=== PATIENT | male | born 1960 | race Caucasian/White ===

== ENCOUNTER 2018-08-20 11:44 | Inpatient (IN) ==
[2018-08-20] MEDS ORDERED: Alteplase Drip 81 MG in Syringe/Bag 1 EACH IV.SIG ONE (11:49)
[2018-08-20] MEDS ORDERED: Alteplase Bolus 9 MG/9 ML Syringe IV.PUSH ONE (11:49)
--- NOTE | 2018-08-20 11:57 | ED ---
HPI General Chief Complaint: Neuro Symptoms/Deficit Stated Complaint: Neuro Time Seen by Provider: 08/20/18 11:49 Source: patient and EMS Mode of arrival: EMS Limitations: physical limitation History of Present Illness HPI Narrative: 50-year-old male was brought by EMS for aphasia. Patient was with a friend. Patient started having symptom of aphasia about 11:05. Patient was brought to local urgent care center. EMS was called to the center. EMS reported upon arrival to the urgent care center, patient started talking again. Patient was put on the stretcher to be transferred to the emergency room. Patient started having aphasia again. Upon arrival patient is aphasic. Patient denies any headache. Patient complained of shortness of breath. Patient denies any chest pain. Patient denies abdominal pain. Patient denies any focal weakness or numbness of the face or extremity. Patient has history of hyperlipidemia. Patient is a smoker. Patient took aspirin 325 mg p.o. this morning. Patient denies history of TIA or CVA. Patient denies any history of recent head injury. Onset (ago): minute(s) Last Observed Normal: 11:05 Timing confirmed by: other (Patient's friend) Location: Reports speech History of same: No Severity: severe Quality: Reports intermittent Relieving factors: none Exacerbating factors: none Context: Reports sudden onset On Anticoagulants: No Associated symptoms: Reports denies other symptoms Treatments Prior to Arrival: Reports Aspirin Related Data Home Medications Medication Instructions Recorded Confirmed aspirin 325 mg PO DAILY 08/20/18 08/20/18 pregabalin [Lyrica] 50 mg PO TID 08/20/18 08/20/18 Allergies Allergy/AdvReac Type Severity Reaction Status Date / Time No Allergy Information Allergy Unverified 08/20/18 11:46 Available Review of Systems ROS: all other systems reviewed are negative PMFSH History History 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 SKIN: Focused skin assessment warm/dry. HEAD: Normocephalic. EYES: No scleral icterus. No injection or drainage. Pupils 2 mm equal reactive. NECK: Supple, trachea midline. No JVD or lymphadenopathy. CARDIOVASCULAR: Regular rate and rhythm without murmurs, gallops, or rubs. RESPIRATORY: Breath sounds equal bilaterally. No accessory muscle use. GASTROINTESTINAL: Abdomen soft, non-tender, nondistended. MUSCULOSKELETAL: No cyanosis, or edema. BACK: Nontender without obvious deformity. No CVA tenderness. Neurologic exam: Patient is a phasic. No obvious drooping of the face or weakness of the arms and legs. Deep tendon reflexes +1 and equal. Negative Babinski. Course Initial Documented Vital Signs Temperature 99.4 F 08/20/18 11:45 Pulse Rate 91 H 08/20/18 11:45 Respiratory Rate 20 08/20/18 11:45 Blood Pressure 174/92 H 08/20/18 11:45 Pulse Oximetry 98 08/20/18 11:45 Last Documented Vital Signs Temperature 99.4 F 08/20/18 11:45 Pulse Rate 88 08/20/18 12:57 Respiratory Rate 18 08/20/18 12:57 Blood Pressure 156/78 H 08/20/18 12:57 Pulse Oximetry 100 08/20/18 12:57 NIH Stroke Scale NIH Stroke Scale Level of Consciousness: 0-Alert Orientation Questions: 0-Answers both correct Responds to Commands: 0-Both tasks correct Gaze Eye Movement: 0-Horizontal movement WNL Visual Guillaume: 0-No visual field defect Facial Movement: 0-Normal Motor Functions Arm LEFT: 0-No drift Motor Functions Arm RIGHT: 0-No drift Motor Functions Leg LEFT: 0-No drift Motor Functions Leg RIGHT: 0-No drift Limb Ataxia: 0-No ataxia Sensory Loss: 0-No sensory loss Best Language: 0-Normal Articulation: 0-Normal Extinction or Inattention Sensory: 0-Absent Total: 0 Medical Decision Making [facility] Narrative Medical decision making narrative: 58-year-old male with sudden onset of aphasia at 1105 today. Patient within window of benefit from TPA. Stroke alert was called. I spoke with neurologist on-call, Dr. Ramsey. CT scan of the brain shows no acute process. Patient will be given TPA. Medical Screen Exam Complete: Yes Emergency Medical Condition: Yes Differential Diagnosis Differential Diagnosis: Differential diagnosis including TIA, CVA. Lab Data Result diagrams: 08/20/18 11:40 Lab Results 08/20/18 08/20/18 08/20/18 Range/Units 11:40 11:40 11:40 WBC 11.5 H (4.0-11.0) th/mm3 RBC 5.29 (4.50-5.90) mil/mm3 Hgb 16.0 (13.0-17.0) gm/dL POC Hgb (Calc) 16.0 (13.0-17.0) g/dL Hct 45.4 (39.0-51.0) % POC Hct 47.0 (39-51.0) % MCV 85.9 (80.0-100.0) fL MCH 30.3 (27.0-34.0) pg MCHC 35.3 (32.0-36.0) % RDW 13.7 (11.6-17.2) % Plt Count 176 (150-450) th/mm3 MPV 9.1 (7.0-11.0) fL Neut % (Auto) 50.8 (16.0-70.0) % Lymph % (Auto) 30.6 (9.0-44.0) % Elbert % (Auto) 10.5 H (0.0-8.0) % Eos % (Auto) 7.0 H (0.0-4.0) % Baso % (Auto) 1.1 (0.0-2.0) % Neut # (Auto) 5.9 (1.8-7.7) th/mm3 Lymph # (Auto) 3.5 (1.0-4.8) th/mm3 Elbert # (Auto) 1.2 H (0.0-0.9) th/mm3 Eos # (Auto) 0.8 H (0.0-0.4) th/mm3 Baso # (Auto) 0.1 (0.0-0.2) th/mm3 WBC Differential . Differential Comment Auto diff final PT 10.5 (9.8-11.6) sec INR 1.0 Ratio APTT 28.2 (23.4-31.7) sec Fibrinogen 348 (227-377) mg/dL POC Sodium 141 (137-144) mmol/L POC Potassium 4.4 (3.6-5.0) mmol/L POC Chloride 103 (102-111) mmol/L POC BUN 22 H (5-21) mg/dL POC Creatinine 1.0 (0.6-1.3) mg/dL POC Glucose 119 H (68-110) mg/dL Total Creatine Kinase 341 H (39-308) U/L CK-MB (CK-2) 9.6 H (0.5-3.6) ng/mL CK-MB (CK-2) % 2.8 (0.0-4.0) % Troponin I Less than 0.02 L (0.02-0.05) ng/mL Blood Type Blood Type Recheck Antibody Screen 08/20/18 Range/Units 11:40 WBC (4.0-11.0) th/mm3 RBC (4.50-5.90) mil/mm3 Hgb (13.0-17.0) gm/dL POC Hgb (Calc) (13.0-17.0) g/dL Hct (39.0-51.0) % POC Hct (39-51.0) % MCV (80.0-100.0) fL MCH (27.0-34.0) pg MCHC (32.0-36.0) % RDW (11.6-17.2) % Plt Count (150-450) th/mm3 MPV (7.0-11.0) fL Neut % (Auto) (16.0-70.0) % Lymph % (Auto) (9.0-44.0) % Elbert % (Auto) (0.0-8.0) % Eos % (Auto) (0.0-4.0) % Baso % (Auto) (0.0-2.0) % Neut # (Auto) (1.8-7.7) th/mm3 Lymph # (Auto) (1.0-4.8) th/mm3 Elbert # (Auto) (0.0-0.9) th/mm3 Eos # (Auto) (0.0-0.4) th/mm3 Baso # (Auto) (0.0-0.2) th/mm3 WBC Differential Differential Comment PT (9.8-11.6) sec INR Ratio APTT (23.4-31.7) sec Fibrinogen (227-377) mg/dL POC Sodium (137-144) mmol/L POC Potassium (3.6-5.0) mmol/L POC Chloride (102-111) mmol/L POC BUN (5-21) mg/dL POC Creatinine (0.6-1.3) mg/dL POC Glucose (68-110) mg/dL Total Creatine Kinase (39-308) U/L CK-MB (CK-2) (0.5-3.6) ng/mL CK-MB (CK-2) % (0.0-4.0) % Troponin I (0.02-0.05) ng/mL Blood Type O Negative Blood Type Recheck Required Antibody Screen Negative Imaging Data Attestation: I personally reviewed and interpreted this imaging study as follows : Radiologist's impression: Chest X-Ray 08/20/18 11:47 CONCLUSION: 1. Left perihilar infiltrate consistent with possible pneumonia. Clinical correlation is recommended. 2. Cardiomegaly. Head CT 08/20/18 11:47 CONCLUSION: No acute findings. Report was called by [Ishan Canales at 1202] Neck CTA 08/20/18 11:47 CONCLUSION: Slight atherosclerotic plaquing at the origin of both ICA without any stenosis. Findings were discussed with Dr. Nickerson at the time of this dictation on 2018 at 12:30 7:00 PM. Discharge Plan Discharge Disposition Patient Disposition: ED Admit(ED Internal Use Only) Discharge Order Discharge Orders: ED Use Only Admit Order (Routine); Ordered 08/20/18 Ordered By: Dillon Canales Discharge Details Diagnosis: Acute cerebrovascular accident (CVA) Physicians Team ED Provider: Dillon Canales Primary Care Provider: UNKNOWN, Attending Provider: Eva Garcia Other Providers: Mahesh Ramsey ; Selena Scott Status ED Status: Admitted Patient
[2018-08-20 12:04] LABS: Baso # (Auto) 0.1 th/mm3 (0.0-0.2); Baso % (Auto) 1.1 % (0.0-2.0); Eos # (Auto) 0.8 th/mm3 (0.0-0.4); Hematocrit 45.4 % (39.0-51.0); Lymph # (Auto) 3.5 th/mm3 (1.0-4.8); Lymph % (Auto) 30.6 % (9.0-44.0); Mean Corpuscular HGB Conc 35.3 % (32.0-36.0); Mean Corpuscular Hemoglobin 30.3 pg (27.0-34.0); Mean Corpuscular Volume 85.9 fL (80.0-100.0); Mean Platelet Volume 9.1 fL (7.0-11.0); Mono # (Auto) 1.2 th/mm3 (0.0-0.9); Mono % (Auto) 10.5 % (0.0-8.0); Neut # (Auto) 5.9 th/mm3 (1.8-7.7); Neut % (Auto) 50.8 % (16.0-70.0); Platelet Count 176 th/mm3 (150-450); Red Blood Count 5.29 mil/mm3 (4.50-5.90); Red Cell Distribution Width 13.7 % (11.6-17.2); White Blood Count 11.5 th/mm3 (4.0-11.0)
--- NOTE | 2018-08-20 12:06 | CT ---
EXAM DATE: 08/20/2018 11:59 AM EST AGE/SEX: 58 years / Male INDICATIONS: Stroke alert, speech deficits. CLINICAL DATA: This is the patient's initial encounter. Patient reports that signs and symptoms have been present for 1 day and indicates a pain score of Nonresponsive. MEDICAL/SURGICAL HISTORY: Non-responsive. Non-responsive. RADIATION DOSE: 52.83 CTDI (mGy) COMPARISON: [facility] [place], CT CEREBRAL PERF W CONTRAST W 3D, 08/20/2018. . TECHNIQUE: CT of the head without contrast. Using automated exposure control and adjustment of the mA and/or kV according to patient size, radiation dose was kept as low as reasonably achievable to ob tain optimal diagnostic quality images. DICOM format image data is available electronically for revi ew and comparison. FINDINGS: There is an old left frontotemporal stroke identified. No evidence of intracranial hemorrhage. No gay dence of brain mass. Ventricles are symmetric and normal. Extracranial structures are benign and inta ct. CONCLUSION: No acute findings. Report was called by [Ishan Canales at 1202] Electronically signed by: Ebenezer Olmstead MD Board Certified Radiologist 08/20/2018 12:05 PM EST
[2018-08-20 12:14] LABS: Activated Partial Thrombo Time 28.2 sec (23.4-31.7); Prothrombin Time 10.5 sec (9.8-11.6)
--- NOTE | 2018-08-20 12:24 | CT ---
EXAM DATE: 08/20/2018 12:12 PM EST AGE/SEX: 58 years / Male INDICATIONS: Stroke alert, speech deficit. CLINICAL DATA: This is the patient's initial encounter. Patient reports that signs and symptoms have been present for 1 day and indicates a pain score of Nonresponsive. MEDICAL/SURGICAL HISTORY: Non-responsive. Non-responsive. RADIATION DOSE: 10.74 CTDI (mGy) ; Combined studies COMPARISON: No prior exams available for comparison. TECHNIQUE: Volumetric scanning was performed using a multi-row detector CT scanner during bolus infu luanne of 85 ml Visipaque 320 (iodixanol) nonionic water-soluble contrast as a cumulative dose for mul tiple exams. The data was post processed with a variety of visualization algorithms including full volume maximum intensity projection, multi-planar sliding thin slab reformation, curved planar reform ation, and surface rendering techniques. Using automated exposure control and adjustment of the mA a nd/or kV according to patient size, radiation dose was kept as low as reasonably achievable to obtain optimal diagnostic quality images. DICOM format image data is available electronically for review a nd comparison. FINDINGS: There are areas of slight irregularity involving multiple branches bilaterally including p osterior circulation most likely due to chronic hypertrophic changes, however other etiologies such a s vasculitis is not excluded. There is no evidence for aneurysm or vascular malformation. No definite vessel truncation or filling defect is seen. Conclusion: chronic atherosclerotic disease without evidence of truncation or definite filling defect s. Findings were discussed with Dr. Hobson at the time of this dictation on 08/20/2018 at 12:23 PM. Electronically signed by: Alan Call MD Board Certified Radiologist 08/20/2018 12:23 PM EST
[2018-08-20 12:27] LABS: Creatine Kinase 341 U/L (39-308)
[2018-08-20 12:39] LABS: CKMB Percent 2.8 % (0.0-4.0); Creatine Kinase MB 9.6 ng/mL (0.5-3.6)
--- NOTE | 2018-08-20 12:39 | CT ---
EXAM DATE: 08/20/2018 12:30 PM EST AGE/SEX: 58 years / Male INDICATIONS: Stroke alert, speech deficit. CLINICAL DATA: This is the patient's initial encounter. Patient reports that signs and symptoms have been present for 1 day and indicates a pain score of Nonresponsive. MEDICAL/SURGICAL HISTORY: Non-responsive. Non-responsive. RADIATION DOSE: 10.74 CTDI (mGy) ; Combined studies COMPARISON: No prior exams available for comparison. TECHNIQUE: Volumetric scanning was performed using a multirow detector CT scanner during bolus infus ion of 85 ml Visipaque 320 (iodixanol) nonionic water-soluble contrast as a cumulative dose for mult iple exams. The data was postprocessed with a variety of visualization algorithms including full-vo lume maximum intensity projection, multiplanar sliding thin-slab reformation, curved-planar reformati on, and surface-rendering techniques. Using automated exposure control and adjustment of the mA and/ or kV according to patient size, radiation dose was kept as low as reasonably achievable to obtain op timal diagnostic quality images. DICOM format image data is available electronically for review and comparison. Percent stenosis is calculated using the diameter of the stenotic region over the diameter of the nor mal distal internal carotid artery. FINDINGS: The takeoff of the major vessels from the arch appear intact. There is mild atherosclerotic plaquing at the origin of both internal carotid arteries without any stenosis. The vertebral body arteries mat ear. CONCLUSION: Slight atherosclerotic plaquing at the origin of both ICA without any stenosis. Findings were discuss ed with Dr. Nickerson at the time of this dictation on 08/28/2018 at 12:30 7:00 PM. Electronically signed by: Alan Call MD Board Certified Radiologist 08/20/2018 12:37 PM EST
--- NOTE | 2018-08-20 12:47 | XR ---
EXAM DATE: 08/20/2018 12:18 PM EST AGE/SEX: 58 years / Male INDICATIONS: Slurred speech, arm weakness,. Stroke Alert CLINICAL DATA: This is the patient's initial encounter. Patient reports that signs and symptoms have been present for 1 day and indicates a pain score of 1/10. MEDICAL/SURGICAL HISTORY: None. None. COMPARISON: No prior exams available for comparison. FINDINGS: The heart is enlarged. Left perihilar infiltrate is noted consistent with possible pneumonia. Clinica l correlation is recommended. The right lung is clear. Degenerative changes are noted throughout the thoracic spine. CONCLUSION: 1. Left perihilar infiltrate consistent with possible pneumonia. Clinical correlation is recommended . 2. Cardiomegaly. Electronically signed by: Greg Russell MD Board Certified Radiologist 08/20/2018 12:46 PM EST
[2018-08-20] MEDS ORDERED: Acetaminophen 325 MG Tablet PO PRN (13:00)
[2018-08-20] MEDS ORDERED: Bisacodyl 10 MG Supp RECTAL PRN (13:00)
[2018-08-20] MEDS ORDERED: Potassium Phosphate Inj 30 MMOL in Sodium Chlor 0.9% Inj 250 ML IV.SIG PRN (13:00)
[2018-08-20] MEDS ORDERED: Sodium Phosphate Inj 30 MMOL in Sodium Chlor 0.9% Inj 250 ML IV.SIG PRN (13:00)
[2018-08-20] MEDS ORDERED: Potassium Chlor 40 mEq Premix 40 MEQ/100 ML PIGGYBACK IV.SIG PRN ×2 (13:00)
[2018-08-20] MEDS ORDERED: Magnesium Sulfate Inj 2 GM in Sodium Chlor 0.9% Inj 96 ML IV.SIG PRN (13:00)
[2018-08-20] MEDS ORDERED: Magnesium Oxide 400 MG Tablet PO PRN (13:00)
[2018-08-20] MEDS ORDERED: Potassium Chlor 20 mEq Premix 20 MEQ/100 ML PIGGYBACK IV.SIG PRN ×2 (13:00)
[2018-08-20] MEDS ORDERED: Potassium Chloride Liq 20 MEQ/15 ML UDC PO PRN ×2 (13:00)
[2018-08-20] MEDS ORDERED: Dextrose 50% in Water 50 ML Vial IV.PUSH PRN (13:00)
[2018-08-20] MEDS ORDERED: Magnesium Sulfate Inj 4 GM in Sodium Chlor 0.9% Inj 92 ML IV.SIG PRN (13:00)
[2018-08-20] MEDS ORDERED: Potassium Phosphate 500 MG Soluble Tablet PO PRN ×2 (13:00)
[2018-08-20] MEDS ORDERED: Labetalol HCl Inj 100 MG/20 ML Vial IV.PUSH PRN (13:00)
--- NOTE | 2018-08-20 13:24 | P.HPCC ---
History of Present Illness Service: [facility] Primary Care Physician: UNKNOWN Chief Complaint: Difficulty speaking History of Present Illness: 58yM presenting to the emergency department as a stroke alert. The patient says that at 11 AM today he was talking to his friend when he began to have difficulty speaking and right arm weakness. He says, "I knew what I wanted to say in my head but I just couldn't get the words out", and says that he was able to understand what other people were saying to him, and was able to write what he meant on a piece of paper. He was initially seen in an urgent care center and subsequently sent to the ED. He says these symptoms lasted 15-20 minutes, resolved, but then again recurred in the ED. He has no symptoms at present. Denies visual disturbance, facial numbness/ facial droop, extremity weakness, or LUE/ bilateral lower extremity numbness. 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 No known history of A fib, current every day smoker. Family history significant for father with CAD/ [place]. Inpatient Certification: I certify that the inpatient services were ordered in accordance with Medicare regulations governing the order. This includes certification that hospital inpatient services are reasonable and necessary and in the case of services not specified as inpatient-only under 42 CFR 419.22(n), that they are appropriately provided as inpatient services in accordance to with the 2-midnight benchmark under 43 CFR 412.3(e) Estimated Total Length of Stay (Days): 3 Plans for Post Hospital Care: Home Review of Systems All other systems reviewed negative except as stated in HPI Constitutional: Denies fever(s) Eyes: Denies blurry vision Ears, Nose, Mouth, and Throat: Reports other Comments: No difficulty swallowing Cardiovascular: Denies chest pain Comments: No palpitations Respiratory: Denies cough Gastrointestinal: Denies abdominal pain Musculoskeletal: Denies abnormal walking Neurologic: Reports abnormal speech, Reports numbness Psychiatric: Denies confusion PMFSH - History History Provided By: Patient, Chief Learning Officer / EMT - Social History I have reviewed the patient's Social History: Yes - Tobacco History Tobacco Use In Past 30 Days: Yes Smoking Status: Current every day smoker Tobacco Type: Cigarettes - Alcohol History How Often Do You Have a Drink Containing Alcohol: 2 to 3 times a week - Immunization History Tetanus Immunization: Unsure Medications and Allergies Active Medications: Active Medications Acetaminophen (Tylenol) 650 mg PO Q6H PRN PRN Reason: PAIN 1-10 AND/OR FEVER >101F Al Hydroxide/Mg Hydroxide (Milk Of Magncharly Liq) 30 ml PO Q12H PRN PRN Reason: Mild Constipation Albuterol (Duoneb Neb (Prn)) 1 ampul NEB Q2HR NEB PRN PRN Reason: WHEEZING Aspirin (Aspirin) 325 mg PO DAILY JUVENTINO Bisacodyl (Dulcolax Supp) 10 mg RECTAL DAILY PRN PRN Reason: SEVERE CONSITIPATION Chlorhexidine Gluconate (Chlorhexidine 2% Cloth) 3 pack TOPICAL DAILY@0400 JUVENTINO Stop: 08/26/18 03:59 Chlorhexidine Gluconate (Chlorhexidine 2% Cloth) 3 pack TOPICAL DAILY@0400 PRN PRN Reason: Extra cloth needed Stop: 08/26/18 03:59 Dextrose (D50w Vial) 50 ml IV.PUSH UNSCH PRN PRN Reason: PER HYPOGLYCEMIA PROTOCOL Enalaprilat (Vasotec Inj) 1.25 mg IV.PUSH Q4H PRN PRN Reason: For SBP > 220 or DBP > 120 Glucagon (Glucagon Inj) 1 mg OTHER UNSCH PRN PRN Reason: for Hypoglycemia Protocol Magnesium Sulfate 4 gm/ Sodium (Chloride) 100 mls @ 50 mls/hr IV.SIG UNSCH PRN PRN Reason: For Magnesium 0.9 - 1.1 mg/dL Magnesium Sulfate 2 gm/ Sodium (Chloride) 100 mls @ 50 mls/hr IV.SIG UNSCH PRN PRN Reason: For Magnesium 1.2 - 1.6 mg/dL Potassium Chloride (Kcl 40 Meq Premix Inj) 40 meq in 100 mls @ 25 mls/hr IV.SIG Q2H PRN PRN Reason: For Potassium 2.8 - 3.2 mEq/L Potassium Chloride (Kcl 20 Meq Premix Inj) 20 meq in 100 mls @ 50 mls/hr IV.SIG Q2H PRN PRN Reason: For Potassium 3.3 - 3.5 mEq/L Potassium Chloride (Kcl 40 Meq Premix Inj) 40 meq in 100 mls @ 25 mls/hr IV.SIG UNSCH PRN PRN Reason: For Potassium 3.3 - 3.5 mEq/L Potassium Phosphate 30 mmol/ (Sodium Chloride) 260 mls @ 42 mls/hr IV.SIG UNSCH PRN PRN Reason: SEE LABEL COMMENTS Sodium Phosphate 30 mmol/ (Sodium Chloride) 260 mls @ 42 mls/hr IV.SIG UNSCH PRN PRN Reason: For Phosphorus < 2.5 mg/dL Potassium Chloride (Kcl 20 Meq Premix Inj) 20 meq in 100 mls @ 50 mls/hr IV.SIG Q2H PRN PRN Reason: For Potassium 2.8 - 3.2 mEq/L Insulin Aspart (Novolog Insulin Correctional Sugar Inj) 0 unit SQ ACHS JUVENTINO; Protocol Labetalol HCl (Trandate Inj) 10 mg IV.PUSH Q2H PRN PRN Reason: For SBP > 220 or DBP > 120 Lactulose (Lactulose Liq) 30 ml PO DAILY PRN PRN Reason: SEVERE CONSITIPATION Magnesium Oxide (Mag-Ox) 800 mg PO UNSCH PRN PRN Reason: For Magnesium 1.2 - 1.6 mg/dL Non-Formulary Medication (Pregabalin [Lyrica]) 50 mg PO TID JUVENTINO Ondansetron HCl (Zofran Inj) 4 mg IV.PUSH Q6H PRN PRN Reason: NAUSEA OR VOMITING Potassium Chloride (Kcl Liq) 40 meq PO UNSCH PRN PRN Reason: Potassium level 3.3-3.5 mEq/L Potassium Chloride (Kcl Liq) 40 meq PO UNSCH PRN PRN Reason: Potassium level 3.3-3.5 mEq/L Potassium Phosphate (K-Phos Original) 2,000 mg PO Q4H PRN PRN Reason: Phosphorus Less Than 2.5 mg/dL Potassium Phosphate (K-Phos Original) 2,000 mg PO UNSCH PRN PRN Reason: SEE LABEL COMMENTS Pravastatin Sodium (Pravachol) 40 mg PO HS [facility] Senna/Docusate Sodium (Annmarie-Colace) 1 tab PO BID [facility] Sennosides (Senokot) 17.2 mg PO Q12H PRN PRN Reason: Moderate Constipation Sodium Chloride (Ns Flush) 2 ml IV.FLUSH PRN PRN PRN Reason: FLUSH AFTER USING IV ACCESS Sodium Chloride (Ns Flush) 2 ml IV.FLUSH BID [facility] Allergies Allergy/AdvReac Type Severity Reaction Status Date / Time No Allergy Information Allergy Unverified 08/20/18 11:46 Available Home Medications Medication Instructions Recorded Confirmed Type aspirin 325 mg PO DAILY 08/20/18 08/20/18 History pregabalin [Lyrica] 50 mg PO TID 08/20/18 08/20/18 History Results - Labs CBC & Chem 7: 08/20/18 11:40 Labs: Short CBC 08/20/18 Range/Units 11:40 WBC 11.5 H (4.0-11.0) th/mm3 Hgb 16.0 (13.0-17.0) gm/dL Hct 45.4 (39.0-51.0) % Plt Count 176 (150-450) th/mm3 Cardiac Enzymes 08/20/18 Range/Units 11:40 Total Creatine Kinase 341 H (39-308) U/L CK-MB (CK-2) 9.6 H (0.5-3.6) ng/mL Troponin I Less than 0.02 L (0.02-0.05) ng/mL - Imaging Impressions Chest X-Ray 08/20/18 11:47 CONCLUSION: 1. Left perihilar infiltrate consistent with possible pneumonia. Clinical correlation is recommended. 2. Cardiomegaly. Head CT 08/20/18 11:47 CONCLUSION: No acute findings. Report was called by [Ishan Canales at 1202] Neck CTA 08/20/18 11:47 CONCLUSION: Slight atherosclerotic plaquing at the origin of both ICA without any stenosis. Findings were discussed with Dr. Nickerson at the time of this dictation on 2018 at 12:30 7:00 PM. Exam Vital signs: Vital Signs 08/20/18 11:45 08/20/18 11:48 08/20/18 12:12 Temperature 99.4 F Pulse Rate 91 H 81 Respiratory Rate 20 18 Blood Pressure 174/92 H 156/73 H Pulse Oximetry 98 100 100 08/20/18 12:26 08/20/18 12:28 08/20/18 12:30 Temperature Pulse Rate 78 79 Respiratory Rate 20 Blood Pressure 160/84 H Pulse Oximetry 100 99 08/20/18 12:42 08/20/18 12:57 Temperature Pulse Rate 81 88 Respiratory Rate 18 18 Blood Pressure 164/92 H 156/78 H Pulse Oximetry 100 100 Intake & Output 08/19/18 08/20/18 08/20/18 18:59 06:59 18:59 Weight 108.862 kg Narrative: GEN: Well-appearing, no acute distress HEENT: NCAT, PERRL, no facial asymmetry, tongue and uvula midline NECK: Trachea midline CARDIO: Regular rate and rhythm, no murmurs PULM: Clear to auscultation bilaterally ABD/GI: Soft, non-tender in all quadrants EXT/MSK: No peripheral edema SKIN: Warm and well-perfused, no rashes or lesions NEURO: Awake and alert, answers all questions appropriately, speech clear and fluent/ no slurred speech or aphasia, motor strength 5/5 in all extremities, no drift, sensation grossly intact to all extremities PSYCH: Appropriate affect Caprini VTE Risk Assessment Caprini VTE Risk Assessment: Moderate/High Risk (score >= 2) VTE Pharmacological Exception Reason: High risk for bleeding Caprini Risk Assessment Model: Point Value = 1 Point Value = 2 Point Value = 3 Point Value = 5 Age 41-60 Minor surgery BMI > 25 kg/m2 Swollen legs Varicose veins or History of unexplained or recurrent spontaneous Oral contraceptives or hormone replacement Sepsis (< 1 month) Serious lung disease, including pneumonia (< 1 month) Abnormal pulmonary function Acute myocardial infarction Congestive heart failure (< 1 month) History of inflammatory bowel disease Medical patient at bed rest Age 61-74 Arthroscopic surgery Major open surgery (> 45 min) Laparoscopic surgery (> 45 min) Malignancy Confined to bed (> 72 hours) Immobilizing plaster cast Central venous access Age >= 75 History of VTE Family history of VTE Factor V Leiden Prothrombin 55938H Lupus anticoagulant Anticardiolipin antibodies Elevated serum homocysteine Heparin-induced thrombocytopenia Other congenital or acquired thrombophilia Stroke (< 1 month) Elective arthroplasty Hip, pelvis, or leg fracture Acute spinal cord injury (< 1 month) Prophylaxis Regimen: Total Risk Factor Score Risk Level Prophylaxis Regimen 0-1 Low Early ambulation 2 Moderate Order ONE of the following: *Sequential Compression Device (SCD) *Heparin 5000 units SQ BID 3-4 Higher Order ONE of the following medications: *Heparin 5000 units SQ TID *Enoxaparin/Lovenox 40 mg SQ daily (WT < 150 kg, CrCl > 30 mL/min) *Enoxaparin/Lovenox 30 mg SQ daily (WT < 150 kg, CrCl > 10-29 mL/min) *Enoxaparin/Lovenox 30 mg SQ BID (WT < 150 kg, CrCl > 30 mL/min) AND/OR *Sequential Compression Device (SCD) 5 or more Highest Order ONE of the following medications: *Heparin 5000 units SQ TID (Preferred with Epidurals) *Enoxaparin/Lovenox 40 mg SQ daily (WT < 150 kg, CrCl > 30 mL/min) *Enoxaparin/Lovenox 30 mg SQ daily (WT < 150 kg, CrCl > 10-29 mL/min) *Enoxaparin/Lovenox 30 mg SQ BID (WT < 150 kg, CrCl > 30 mL/min) AND *Sequential Compression Device (SCD) Assessment and Plan - Assessment and Plan Plan: 58yM presenting with acute ischemic CVA NEURO: Acute ischemic CVA Dysarthria RUE numbness -Dysarthria and RUE numbness have resolved since arrival -Patient was given alteplase at 11:45 AM in ED -q1h neuro checks -CTH on arrival showed no acute hemorrhage, CTA head/ neck showed slight atherosclerotic disease of both ICAs but no large-vessel occlusions -Repeat CTH in 24 hrs -MRI brain now -desk monitor, check 2D echo -Check HbA1c and lipid panel with AM labs -Start ASA 24 hrs after tPA administration -Neurology consulted, Dr. Braulio MADRID: Tobacco use disorder -Patient counseled on importance of smoking cessation -Nicotine patch -Incentive spirometry F/E/N: -Cardiac diet -ICU electrolyte protocol PROPHY: -SCDs, start SQH 24 hrs after tPA administration -No need for PPI if patient is tolerating diet OVERALL: This patient is critically ill with signs and symptoms concerning for acute ischemic CVA. He was given t-PA and needs to be observed in the intensive care unit. If he remains stable overnight, he can be transferred to hospitalist service in AM. Critical care time: 34 minutes Code Status: Full
[2018-08-20] MEDS: Pregabalin 25 MG Capsule PO SCH ×2 (13:45→19:04)
[2018-08-20 14:08] LABS: Bilirubin,Urine Negative (Negative); Clarity,Urine Clear (Clear); Color,Urine Straw (Yellw/Straw); Glucose,Urine (UA) Negative (Negative); Leukocyte Esterase,Urine Negative (Negative); Nitrite,Urine Negative (Negative); Specific Gravity,Urine 1.033 (1.002-1.035)
[2018-08-20 14:11] LABS: Amphetamine Screen,Urine Neg (Neg); Barbiturate Screen,Urine Neg (Neg); Cannabinoid Screen,Urine Neg (Neg); Cocaine Screen,Urine Neg (Neg)
[2018-08-20 14:17] LABS: Opiate Screen,Urine Neg (Neg)
--- NOTE | 2018-08-20 14:19 | MR ---
EXAM DATE: 08/20/2018 2:07 PM EST AGE/SEX: 58 years / Male INDICATIONS: CVA. CLINICAL DATA: This is the patient's initial encounter. Patient reports that signs and symptoms have been present for 1 day and indicates a pain score of 2/10. MEDICAL/SURGICAL HISTORY: Hypertension. CVA. Discectomy, lumbar. Carpal tunnel. [place] [facility] [place] [facility] W 3[place]/20/[place]. . TECHNIQUE: Multiplanar, multisequence examination of the brain was performed without contrast. FINDINGS: Cerebrum: Focal encephalomalacia is noted involving the left frontal region. Prominent perivascular space is noted within the inferior aspect of the left basal ganglia. Right periventricular white adithya er signal abnormality is noted consistent with probable small vessel ischemic disease and/or old lacu rhonda infarct. There is no acute hemorrhage, acute infarct, midline shift or extra-axial fluid collecti on. White Matter: No significant signal abnormalities are seen in the white matter. Posterior Fossa: The cerebellum and brainstem are intact. The 4th ventricle is midline. The cerebel lopontine angle is unremarkable. The cerebellar tonsils are normal in position. Diffusion Imaging: No focal areas of restricted diffusion are seen. No evidence of acute infarction . Extracranial: The visualized portions of the orbits and paranasal sinuses are unremarkable. CONCLUSION: 1. No acute hemorrhage, acute infarct, midline shift or extra-axial fluid collections. 2. Focal encephalomalacia is noted involving the left frontal region. 3. Right periventricular white matter signal abnormality is noted consistent with probable small ves robe ischemic disease and/or old lacunar infarct. Electronically signed by: Greg Russell MD Board Certified Radiologist 08/20/2018 2:17 PM EST
--- NOTE | 2018-08-20 17:29 | P.CONNEU ---
History of Present Illness Service: Neurology Primary Care Provider: UNKNOWN Chief Complaint: Difficulty speaking History of Present Illness: 50-year-old male presents with speech difficulty. Occur approximately an hour before arrival to the ER. Woke up normal state of health. State he had difficulty getting his words out also had a numbness go down his right arm. No tonic-clonic activity. Treatment option discussed with the patient after CT brain scan did not show any acute hemorrhage. Patient elected for IV TPA understood side effects benefits 6% chance of ICH systemic bleeding. CT brain carotids not show any significant vaso-occlusive disease therefore no further intervention. Denies any head or neck trauma. Takes aspirin daily. Does not take anything for high blood pressure. He is visiting from [place] where he gets his health care. 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 States he had extensive testing performed. No history of seizures or jerking Review of Systems All other systems reviewed negative except as stated in HPI [facility] - History History Provided By: Patient - Medical History Medical History: Medical History (Last Reviewed 08/20/18 @ 17:00 by Eva Garcia DO) Stroke - Tobacco History Second Hand Smoke Exposure: Yes Tobacco Use In Past 30 Days: Yes Smoking Status: Current some day smoker Tobacco Type: Cigarettes - Alcohol History How Often Do You Have a Drink Containing Alcohol: 2 to 3 times a week - Substance Use History Substance History: No History of Abuse - Immunization History Tetanus Immunization: Unable to Assess Hx Influenza Vaccine This Season: No Medications and Allergies Active Medications: Active Medications Acetaminophen (Tylenol) 650 mg PO Q6H PRN PRN Reason: PAIN 1-10 AND/OR FEVER >101F Al Hydroxide/Mg Hydroxide (Milk Of Adan Price) 30 ml PO Q12H PRN PRN Reason: Mild Constipation Albuterol (Duoneb Neb (Prn)) 1 ampul NEB Q2HR NEB PRN PRN Reason: WHEEZING Aspirin (Aspirin) 325 mg PO DAILY [facility] Bisacodyl (Dulcolax Supp) 10 mg RECTAL DAILY PRN PRN Reason: SEVERE CONSITIPATION Chlorhexidine Gluconate (Chlorhexidine 2% Cloth) 3 pack TOPICAL DAILY@0400 [facility] Stop: 08/26/18 03:59 Chlorhexidine Gluconate (Chlorhexidine 2% Cloth) 3 pack TOPICAL DAILY@0400 PRN PRN Reason: Extra cloth needed Stop: 08/26/18 03:59 Dextrose (D50w Vial) 50 ml IV.PUSH UNSCH PRN PRN Reason: PER HYPOGLYCEMIA PROTOCOL Enalaprilat (Vasotec Inj) 1.25 mg IV.PUSH Q4H PRN PRN Reason: For SBP > 220 or DBP > 120 Glucagon (Glucagon Inj) 1 mg OTHER UNSCH PRN PRN Reason: for Hypoglycemia Protocol Magnesium Sulfate 4 gm/ Sodium (Chloride) 100 mls @ 50 mls/hr IV.SIG UNSCH PRN PRN Reason: For Magnesium 0.9 - 1.1 mg/dL Magnesium Sulfate 2 gm/ Sodium (Chloride) 100 mls @ 50 mls/hr IV.SIG UNSCH PRN PRN Reason: For Magnesium 1.2 - 1.6 mg/dL Potassium Chloride (Kcl 40 Meq Premix Inj) 40 meq in 100 mls @ 50 mls/hr IV.SIG Q2H PRN PRN Reason: For Potassium 2.8 - 3.2 mEq/L Potassium Chloride (Kcl 20 Meq Premix Inj) 20 meq in 100 mls @ 50 mls/hr IV.SIG Q2H PRN PRN Reason: For Potassium 3.3 - 3.5 mEq/L Potassium Chloride (Kcl 40 Meq Premix Inj) 40 meq in 100 mls @ 25 mls/hr IV.SIG UNSCH PRN PRN Reason: For Potassium 3.3 - 3.5 mEq/L Potassium Phosphate 30 mmol/ (Sodium Chloride) 260 mls @ 42 mls/hr IV.SIG UNSCH PRN PRN Reason: SEE LABEL COMMENTS Sodium Phosphate 30 mmol/ (Sodium Chloride) 260 mls @ 42 mls/hr IV.SIG UNSCH PRN PRN Reason: For Phosphorus < 2.5 mg/dL Potassium Chloride (Kcl 20 Meq Premix Inj) 20 meq in 100 mls @ 50 mls/hr IV.SIG Q2H PRN PRN Reason: For Potassium 2.8 - 3.2 mEq/L Insulin Aspart (Novolog Insulin Correctional Sugar Inj) 0 unit SQ ACHS [facility]; Protocol Labetalol HCl (Trandate Inj) 10 mg IV.PUSH Q2H PRN PRN Reason: For SBP > 220 or DBP > 120 Lactulose (Lactulose Liq) 30 ml PO DAILY PRN PRN Reason: SEVERE CONSITIPATION Magnesium Oxide (Mag-Ox) 800 mg PO UNSCH PRN PRN Reason: For Magnesium 1.2 - 1.6 mg/dL Nicotine (Habitrol 14 Mg Patch.24 Hr) 1 patch T-DERMAL DAILY [facility] Ondansetron HCl (Zofran Inj) 4 mg IV.PUSH Q6H PRN PRN Reason: NAUSEA OR VOMITING Patch Removal (Remove Old Patch) 1 each T-DERMAL HS [facility] Potassium Chloride (Kcl Liq) 40 meq PO UNSCH PRN PRN Reason: Potassium level 3.3-3.5 mEq/L Potassium Phosphate (K-Phos Original) 2,000 mg PO Q4H PRN PRN Reason: Phosphorus Less Than 2.5 mg/dL Potassium Phosphate (K-Phos Original) 2,000 mg PO UNSCH PRN PRN Reason: SEE LABEL COMMENTS Pravastatin Sodium (Pravachol) 40 mg PO HS [facility] Pregabalin (Lyrica) 50 mg PO TID [facility] Last Admin: 08/20/18 13:45 Dose: 50 mg Senna/Docusate Sodium (Annmarie-Colace) 1 tab PO BID [facility] Sennosides (Senokot) 17.2 mg PO Q12H PRN PRN Reason: Moderate Constipation Sodium Chloride (Ns Flush) 2 ml IV.FLUSH UNSCH PRN PRN Reason: FLUSH AFTER USING IV ACCESS Sodium Chloride (Ns Flush) 2 ml IV.FLUSH BID [facility] Allergies Allergy/AdvReac Type Severity Reaction Status Date / Time No Allergy Information Allergy Unverified 08/20/18 11:46 Available Home Medications Medication Instructions Recorded Confirmed Type aspirin 325 mg PO DAILY 08/20/18 08/20/18 History pregabalin [Lyrica] 50 mg PO TID 08/20/18 08/20/18 History Exam Vital signs: Vital Signs 08/20/18 11:45 08/20/18 11:48 08/20/18 12:12 Temperature 99.4 F Pulse Rate 91 H 81 Respiratory Rate 20 18 Blood Pressure 174/92 H 156/73 H Pulse Oximetry 98 100 100 08/20/18 12:26 08/20/18 12:28 08/20/18 12:30 Temperature Pulse Rate 78 79 Respiratory Rate 20 Blood Pressure 160/84 H Pulse Oximetry 100 99 08/20/18 12:42 08/20/18 12:57 08/20/18 13:27 Temperature Pulse Rate 81 88 69 Respiratory Rate 18 18 21 Blood Pressure 164/92 H 156/78 H 142/88 H Pulse Oximetry 100 100 100 08/20/18 13:42 08/20/18 13:57 08/20/18 14:00 Temperature Pulse Rate 70 72 72 Respiratory Rate 20 18 Blood Pressure 145/79 H 139/75 Pulse Oximetry 100 100 08/20/18 14:29 08/20/18 14:30 08/20/18 14:42 Temperature Pulse Rate 72 68 Respiratory Rate 16 23 Blood Pressure 161/86 H 152/88 H Pulse Oximetry 95 96 99 08/20/18 14:45 08/20/18 15:00 08/20/18 15:15 Temperature 98.6 F Pulse Rate 73 73 71 Respiratory Rate 27 H 20 20 Blood Pressure 142/78 H Pulse Oximetry 99 99 99 08/20/18 15:30 08/20/18 15:45 08/20/18 16:00 Temperature 98.5 F Pulse Rate 70 70 70 Respiratory Rate 18 18 23 Blood Pressure 135/74 146/86 H Pulse Oximetry 100 99 98 08/20/18 16:15 Temperature Pulse Rate 69 Respiratory Rate 47 H Blood Pressure Pulse Oximetry 99 Intake & Output 08/19/18 08/20/18 08/20/18 18:59 06:59 18:59 Intake Total 81 / 81 Balance 81 / 81 Weight 106.5 kg Intake: IV 81 / 81 Activase Drip 81 MG In Bag/ / 81 Syringe 1 EACH @ 81 mls/hr IV. SIG ONCE ONE Rx#:[id number] Narrative: GENERAL: in NAD, SKIN: Warm and dry. HEAD: Atraumatic. Normocephalic. EYES: Pupils equal and round. No scleral icterus. ENT: No nasal bleeding or discharge. Mucous membranes pink and moist. NECK: Trachea midline. No JVD. CARDIOVASCULAR: Regular rate and rhythm. RESPIRATORY: No accessory muscle use. GASTROINTESTINAL: Abdomen soft, non-tender, nondistended. MUSCULOSKELETAL: Extremities without clubbing, cyanosis, or edema. No obvious deformities. NEUROLOGICAL: Awake and alert. Sitting up in bed mildly dysarthric speech, minimal expressive aphasia able to repeat name, follows motor request, pleasant , slightly reduced right nasolabial fold smile, no pronator drift me neglect OU 3-2mm, eomi, VFF, Motor grossly within normal limits. Five out of 5 muscle strength in the arms and legs. Tone normal in all 4 limbs, Sensory normal in all 4 extremities to pin, msr 1-2+ sym, no clonus, planterflexor, PSYCHIATRIC: Appropriate mood and affect; insight and judgment normal. - Constitutional no acute distress - Routine HEENT Exam Head: Present: normocephalic Results - Labs CBC & Chem 7: 08/20/18 11:40 Labs: Laboratory Results - last 24 hr 08/20/18 08/20/18 08/20/18 11:40 11:40 11:40 WBC 11.5 H RBC 5.29 Hgb 16.0 POC Hgb (Calc) 16.0 Hct 45.4 POC Hct 47.0 MCV 85.9 MCH 30.3 MCHC 35.3 RDW 13.7 Plt Count 176 MPV 9.1 Neut % (Auto) 50.8 Lymph % (Auto) 30.6 [place] % (Auto) 10.5 H Eos % (Auto) 7.0 H Baso % (Auto) 1.1 Neut # (Auto) 5.9 Lymph # (Auto) 3.5 [place] # (Auto) 1.2 H Eos # (Auto) 0.8 H Baso # (Auto) 0.1 WBC Differential . Differential Comment Auto diff final PT 10.5 INR 1.0 APTT 28.2 Fibrinogen 348 POC Sodium 141 POC Potassium 4.4 POC Chloride 103 POC BUN 22 H POC Creatinine 1.0 POC Glucose 119 H Total Creatine Kinase 341 H CK-MB (CK-2) 9.6 H CK-MB (CK-2) % 2.8 Troponin I Less than 0.02 L Urine Color Urine Clarity Urine pH Ur Specific [place] Urine Protein Urine Glucose (UA) Urine Ketones Urine Occult Blood Urine Nitrate Urine Bilirubin Urine Urobilinogen Ur Leukocyte Esterase Urine RBC Urine WBC Micro UA Comment Ur Microscopic Review Urine Culture Comments Urine Opiates Screen Ur Barbiturates Screen Ur Amphetamines Screen U Benzodiazepines Scrn Urine Cocaine Screen U Cannabinoids Screen Blood Type Blood Type Recheck Antibody Screen 08/20/18 08/20/18 08/20/18 11:40 12:58 12:58 WBC RBC Hgb POC Hgb (Calc) Hct POC Hct MCV MCH MCHC RDW Plt Count MPV Neut % (Auto) Lymph % (Auto) [place] % (Auto) Eos % (Auto) Baso % (Auto) Neut # (Auto) Lymph # (Auto) [place] # (Auto) Eos # (Auto) Baso # (Auto) WBC Differential Differential Comment PT INR APTT Fibrinogen POC Sodium POC Potassium POC Chloride POC BUN POC Creatinine POC Glucose Total Creatine Kinase CK-MB (CK-2) CK-MB (CK-2) % Troponin I Urine Color Straw Urine Clarity Clear Urine pH 6.0 Ur Specific [place] 1.033 Urine Protein Negative Urine Glucose (UA) Negative Urine Ketones Negative Urine Occult Blood Small H Urine Nitrate Negative Urine Bilirubin Negative Urine Urobilinogen Less than 2 Ur Leukocyte Esterase Negative Urine RBC 3 Urine WBC Less than 1 Micro UA Comment Cath-culture not ind Ur Microscopic Review Not Reportable Urine Culture Comments Cath-cult not ind Urine Opiates Screen Neg Ur Barbiturates Screen Neg Ur Amphetamines Screen Neg U Benzodiazepines Scrn Neg Urine Cocaine Screen Neg U Cannabinoids Screen Neg Blood Type O Negative Blood Type Recheck Required Antibody Screen Negative - Imaging Impressions Chest X-Ray 08/20/18 11:47 CONCLUSION: 1. Left perihilar infiltrate consistent with possible pneumonia. Clinical correlation is recommended. 2. Cardiomegaly. Head CT 08/20/18 11:47 CONCLUSION: No acute findings. Report was called by [Ishan Canales at 1202] Neck CTA 08/20/18 11:47 CONCLUSION: Slight atherosclerotic plaquing at the origin of both ICA without any stenosis. Findings were discussed with Dr. Nickerson at the time of this dictation on 2018 at 12:30 7:00 PM. Head MRI 08/20/18 12:28 CONCLUSION: 1. No acute hemorrhage, acute infarct, midline shift or extra-axial fluid collections. 2. Focal encephalomalacia is noted involving the left frontal region. 3. Right periventricular white matter signal abnormality is noted consistent with probable small vessel ischemic disease and/or old lacunar infarct. Review/Management - Diagnosis (1) Acute ischemic left MCA stroke Code(s): I63.512 - Cerebral infarction due to unspecified occlusion or stenosis of left middle cerebral artery Status: Acute Current Visit: Yes (2) Chronic arterial ischemic stroke Code(s): I69.30 - Unspecified sequelae of cerebral infarction Status: Acute Current Visit: Yes (3) Hypertension Code(s): I10 - Essential (primary) hypertension Status: Acute Current Visit : Yes - Review/Management Plan: Left MCA lacunar stroke versus resolving TIA Status post IV TPA Speech improved after IV TPA. NIH stroke scale score 1 MRI brain scan reviewed which was done shortly after he got IV TPA did not show any acute stroke however does have evidence of a old left frontal infarct and old right hemispheric stroke. This would bring up the question of embolic phenomenon He also may have had left hemispheric seizure affecting his speech and arm we will check an EEG and that standpoint Recommendation Post IV TPA order set Blood pressure was 180/100 No blood thinners times 24 hours SCDs EEG We will get a repeat MRI for the morning Fasting lipids HbA1c 2D echo If CT brain scan at 24 hours negative for any hemorrhage we will start him on aspirin in addition to Plavix which he should continue with for 6-12 weeks and further evaluation follow-up in [place] We discussed hypercoagulable panel hematological evaluation cardiological evaluation for ABELARDO although he may need to be here for a few more days for that. He states he will get this testing performed outpatient in [place] is a flight back on Thursday. I also suggest for the patient to get an outpatient polysomnogram to exclude sleep apnea with his history of stroke, large neck circumference and hypertension Follow exam
[2018-08-20] MEDS: Insulin NovoLOG Aspart Correctional Sugar Inj SQ SCH ×2 (17:47→21:46)
[2018-08-20] MEDS: Senna/Docusate Sodium 8.6/50 MG Tablet PO SCH (21:03)
[2018-08-20] MEDS: levETIRAcetam 500 MG Tablet PO SCH (21:03)
[2018-08-21] MEDS ORDERED: Chlorhexidine Gluconate 2% 1 Pack (2 Cloths) TOPICAL SCH (04:00)
[2018-08-21] MEDS ORDERED: Chlorhexidine Gluconate 2% 1 Pack (2 Cloths) TOPICAL PRN (04:00)
[2018-08-21] MEDS: Insulin NovoLOG Aspart Correctional Sugar Inj SQ SCH ×4 (09:08→21:35)
[2018-08-21] MEDS: levETIRAcetam 500 MG Tablet PO SCH (09:50)
[2018-08-21] MEDS: Pregabalin 25 MG Capsule PO SCH ×3 (09:50→17:28)
[2018-08-21] MEDS: Senna/Docusate Sodium 8.6/50 MG Tablet PO SCH (09:50)
--- NOTE | 2018-08-21 10:01 | P.PN ---
Subjective Interval history: Follow-up left MCA CVA August 21, 2018-patient seen and examined, status post TPA, positive for dysarthria and no acute event overnight. Denies any chest pain or shortness of breath. Physical Exam Vital signs: Vital Signs 08/20/18 11:45 08/20/18 11:48 08/20/18 12:12 Temperature 99.4 F Pulse Rate 91 H 81 Respiratory Rate 20 18 Blood Pressure 174/92 H 156/73 H Pulse Oximetry 98 100 100 08/20/18 12:26 08/20/18 12:28 08/20/18 12:30 Temperature Pulse Rate 78 79 Respiratory Rate 20 Blood Pressure 160/84 H Pulse Oximetry 100 99 08/20/18 12:42 08/20/18 12:57 08/20/18 13:27 Temperature Pulse Rate 81 88 69 Respiratory Rate 18 18 21 Blood Pressure 164/92 H 156/78 H 142/88 H Pulse Oximetry 100 100 100 08/20/18 13:42 08/20/18 13:57 08/20/18 14:00 Temperature Pulse Rate 70 72 72 Respiratory Rate 20 18 Blood Pressure 145/79 H 139/75 Pulse Oximetry 100 100 08/20/18 14:29 08/20/18 14:30 08/20/18 14:42 Temperature Pulse Rate 72 68 Respiratory Rate 16 23 Blood Pressure 161/86 H 152/88 H Pulse Oximetry 95 96 99 08/20/18 14:45 08/20/18 15:00 08/20/18 15:15 Temperature 98.6 F Pulse Rate 73 73 71 Respiratory Rate 27 H 20 20 Blood Pressure 142/78 H Pulse Oximetry 99 99 99 08/20/18 15:30 08/20/18 15:45 08/20/18 16:00 Temperature 98.5 F Pulse Rate 70 70 70 Respiratory Rate 18 18 23 Blood Pressure 135/74 146/86 H Pulse Oximetry 100 99 98 08/20/18 16:15 08/20/18 16:30 08/20/18 16:45 Temperature Pulse Rate 69 66 65 Respiratory Rate 47 H 19 19 Blood Pressure 134/82 Pulse Oximetry 99 97 99 08/20/18 17:00 08/20/18 17:15 08/20/18 17:30 Temperature Pulse Rate 65 69 65 Respiratory Rate 21 20 19 Blood Pressure 138/77 144/79 H Pulse Oximetry 98 97 100 08/20/18 17:45 08/20/18 17:50 08/20/18 18:00 Temperature Pulse Rate 66 71 66 Respiratory Rate 23 20 Blood Pressure 136/79 Pulse Oximetry 99 99 08/20/18 18:15 08/20/18 18:30 08/20/18 19:00 Temperature Pulse Rate 72 70 70 Respiratory Rate 23 18 21 Blood Pressure 156/82 H 134/69 Pulse Oximetry 95 99 97 08/20/18 19:15 08/20/18 19:30 08/20/18 19:45 Temperature 98.1 F Pulse Rate 65 69 70 Respiratory Rate 19 35 H 27 H Blood Pressure 138/68 Pulse Oximetry 96 99 99 08/20/18 20:00 08/20/18 20:15 08/20/18 20:30 Temperature Pulse Rate 66 70 65 Respiratory Rate 23 34 H 22 Blood Pressure 146/76 H 143/64 H Pulse Oximetry 99 99 99 08/20/18 20:45 08/20/18 21:00 08/20/18 21:15 Temperature Pulse Rate 66 63 64 Respiratory Rate 20 24 17 Blood Pressure 166/96 H Pulse Oximetry 98 98 99 08/20/18 21:30 08/20/18 21:45 08/20/18 22:00 Temperature Pulse Rate 64 62 65 Respiratory Rate 33 H 17 19 Blood Pressure 146/85 H 153/83 H Pulse Oximetry 99 98 99 08/20/18 22:15 08/20/18 22:30 08/20/18 22:45 Temperature Pulse Rate 63 61 65 Respiratory Rate 21 20 24 Blood Pressure 140/95 H Pulse Oximetry 98 96 98 08/20/18 23:00 08/20/18 23:15 08/20/18 23:30 Temperature Pulse Rate 66 62 63 Respiratory Rate 22 17 23 Blood Pressure 132/73 147/93 H Pulse Oximetry 99 97 97 08/20/18 23:45 08/21/18 00:00 08/21/18 00:15 Temperature 98.6 F Pulse Rate 61 62 57 L Respiratory Rate 18 15 16 Blood Pressure 147/79 H Pulse Oximetry 98 99 98 08/21/18 00:30 08/21/18 00:45 08/21/18 01:00 Temperature Pulse Rate 59 L 60 65 Respiratory Rate 17 17 28 H Blood Pressure 143/85 H 144/84 H Pulse Oximetry 98 97 98 08/21/18 01:15 08/21/18 01:30 08/21/18 01:45 Temperature Pulse Rate 61 59 L 61 Respiratory Rate 17 22 20 Blood Pressure 121/69 Pulse Oximetry 97 97 97 08/21/18 02:00 08/21/18 02:15 08/21/18 02:30 Temperature Pulse Rate 69 70 64 Respiratory Rate 18 20 19 Blood Pressure 142/73 H 138/71 Pulse Oximetry 97 98 97 08/21/18 02:45 08/21/18 03:00 08/21/18 03:15 Temperature Pulse Rate 64 63 64 Respiratory Rate 23 22 24 Blood Pressure 149/79 H Pulse Oximetry 97 98 99 08/21/18 03:30 08/21/18 03:45 08/21/18 04:00 Temperature Pulse Rate 63 65 68 Respiratory Rate 25 H 32 H 14 Blood Pressure 136/76 149/91 H Pulse Oximetry 99 99 95 08/21/18 04:15 08/21/18 04:30 08/21/18 04:45 Temperature Pulse Rate 60 60 63 Respiratory Rate 15 18 8 L Blood Pressure 140/75 Pulse Oximetry 96 96 98 08/21/18 05:00 08/21/18 05:15 08/21/18 05:30 Temperature Pulse Rate 65 63 66 Respiratory Rate 18 20 21 Blood Pressure 122/76 150/92 H Pulse Oximetry 95 97 97 08/21/18 05:45 08/21/18 06:00 08/21/18 06:15 Temperature Pulse Rate 66 62 64 Respiratory Rate 28 H 20 20 Blood Pressure 152/86 H Pulse Oximetry 97 96 98 08/21/18 06:30 08/21/18 06:45 08/21/18 07:00 Temperature Pulse Rate 61 68 67 Respiratory Rate 15 31 H 18 Blood Pressure 119/60 132/81 Pulse Oximetry 96 99 97 08/21/18 07:15 08/21/18 07:29 08/21/18 07:30 Temperature Pulse Rate 63 72 Respiratory Rate 18 45 H Blood Pressure 153/85 H Pulse Oximetry 96 98 97 08/21/18 07:32 08/21/18 07:45 08/21/18 08:00 Temperature Pulse Rate 64 66 Respiratory Rate 18 24 Blood Pressure 133/70 Pulse Oximetry 96 98 96 08/21/18 08:15 08/21/18 08:30 08/21/18 08:45 Temperature Pulse Rate 69 74 72 Respiratory Rate 20 18 21 Blood Pressure 144/83 H Pulse Oximetry 95 95 96 08/21/18 09:00 08/21/18 09:20 08/21/18 09:30 Temperature Pulse Rate 69 72 Respiratory Rate 20 Blood Pressure 143/84 H 138/79 Pulse Oximetry 97 96 95 08/21/18 09:45 Temperature Pulse Rate 74 Respiratory Rate 33 H Blood Pressure Pulse Oximetry 93 L Intake & Output 08/20/18 08/21/18 08/21/18 18:59 06:59 18:59 Intake Total 561 / 561 660 / 660 Output Total 750 / 750 1375 / 1375 Balance -189 / -189 -715 / -715 Weight 106.5 kg 107.1 kg Intake: IV 81 / 81 Activase Drip 81 MG In Bag/ 81 / 81 Syringe 1 EACH @ 81 mls/hr IV. SIG ONCE ONE Rx#:[id number] Oral 480 / 480 660 / 660 Output: Urine 750 / 750 1375 / 1375 Other: # Voids 4 6 Narrative: GENERAL: NAD with dysarthria SKIN: Warm and dry. HEAD: Atraumatic. Normocephalic. EYES: Pupils equal and round. No scleral icterus. No injection or drainage. ENT: No nasal bleeding or discharge. Mucous membranes pink and moist. NECK: Trachea midline. No JVD. CARDIOVASCULAR: Regular rate and rhythm. RESPIRATORY: No accessory muscle use. Clear to auscultation. Breath sounds equal bilaterally. GASTROINTESTINAL: Abdomen soft, non-tender, nondistended. Hepatic and splenic margins not palpable. MUSCULOSKELETAL: Extremities without clubbing, cyanosis, or edema. No obvious deformities. NEUROLOGICAL: Awake and alert. No obvious cranial nerve deficits. Motor grossly within normal limits. Five out of 5 muscle strength in the arms and legs. Normal speech. PSYCHIATRIC: Appropriate mood and affect; insight and judgment normal. Results - Labs CBC & Chem 7: 08/20/18 11:40 Laboratory Results - last 24 hr 08/20/18 08/20/18 08/20/18 11:40 11:40 11:40 WBC 11.5 H RBC 5.29 Hgb 16.0 POC Hgb (Calc) 16.0 Hct 45.4 POC Hct 47.0 MCV 85.9 MCH 30.3 MCHC 35.3 RDW 13.7 Plt Count 176 MPV 9.1 Neut % (Auto) 50.8 Lymph % (Auto) 30.6 [place] % (Auto) 10.5 H Eos % (Auto) 7.0 H Baso % (Auto) 1.1 Neut # (Auto) 5.9 Lymph # (Auto) 3.5 [place] # (Auto) 1.2 H Eos # (Auto) 0.8 H Baso # (Auto) 0.1 WBC Differential . Differential Comment Auto diff final PT 10.5 INR 1.0 APTT 28.2 Fibrinogen 348 POC Sodium 141 POC Potassium 4.4 POC Chloride 103 POC BUN 22 H POC Creatinine 1.0 POC Glucose 119 H Total Creatine Kinase 341 H CK-MB (CK-2) 9.6 H CK-MB (CK-2) % 2.8 Troponin I Less than 0.02 L Urine Color Urine Clarity Urine pH Ur Specific [place] Urine Protein Urine Glucose (UA) Urine Ketones Urine Occult Blood Urine Nitrate Urine Bilirubin Urine Urobilinogen Ur Leukocyte Esterase Urine RBC Urine WBC Micro UA Comment Ur Microscopic Review Urine Culture Comments Nasal Screen MRSA (PCR) Urine Opiates Screen Ur Barbiturates Screen Ur Amphetamines Screen U Benzodiazepines Scrn Urine Cocaine Screen U Cannabinoids Screen Blood Type Blood Type Recheck Antibody Screen 08/20/18 08/20/18 08/20/18 11:40 12:58 12:58 WBC RBC Hgb POC Hgb (Calc) Hct POC Hct MCV MCH MCHC RDW Plt Count MPV Neut % (Auto) Lymph % (Auto) [place] % (Auto) Eos % (Auto) Baso % (Auto) Neut # (Auto) Lymph # (Auto) [place] # (Auto) Eos # (Auto) Baso # (Auto) WBC Differential Differential Comment PT INR APTT Fibrinogen POC Sodium POC Potassium POC Chloride POC BUN POC Creatinine POC Glucose Total Creatine Kinase CK-MB (CK-2) CK-MB (CK-2) % Troponin I Urine Color Straw Urine Clarity Clear Urine pH 6.0 Ur Specific [place] 1.033 Urine Protein Negative Urine Glucose (UA) Negative Urine Ketones Negative Urine Occult Blood Small H Urine Nitrate Negative Urine Bilirubin Negative Urine Urobilinogen Less than 2 Ur Leukocyte Esterase Negative Urine RBC 3 Urine WBC Less than 1 Micro UA Comment Cath-culture not ind Ur Microscopic Review Not Reportable Urine Culture Comments Cath-cult not ind Nasal Screen MRSA (PCR) Urine Opiates Screen Neg Ur Barbiturates Screen Neg Ur Amphetamines Screen Neg U Benzodiazepines Scrn Neg Urine Cocaine Screen Neg U Cannabinoids Screen Neg Blood Type O Negative Blood Type Recheck Required Antibody Screen Negative 08/20/18 08/20/18 08/20/18 15:30 17:27 21:12 WBC RBC Hgb POC Hgb (Calc) Hct POC Hct MCV MCH MCHC RDW Plt Count MPV Neut % (Auto) Lymph % (Auto) [place] % (Auto) Eos % (Auto) Baso % (Auto) Neut # (Auto) Lymph # (Auto) [place] # (Auto) Eos # (Auto) Baso # (Auto) WBC Differential Differential Comment PT INR APTT Fibrinogen POC Sodium POC Potassium POC Chloride POC BUN POC Creatinine POC Glucose 119 H 95 Total Creatine Kinase CK-MB (CK-2) CK-MB (CK-2) % Troponin I Urine Color Urine Clarity Urine pH Ur Specific [place] Urine Protein Urine Glucose (UA) Urine Ketones Urine Occult Blood Urine Nitrate Urine Bilirubin Urine Urobilinogen Ur Leukocyte Esterase Urine RBC Urine WBC Micro UA Comment Ur Microscopic Review Urine Culture Comments Nasal Screen MRSA (PCR) Not detected Urine Opiates Screen Ur Barbiturates Screen Ur Amphetamines Screen U Benzodiazepines Scrn Urine Cocaine Screen U Cannabinoids Screen Blood Type Blood Type Recheck Antibody Screen - Imaging Impressions Chest X-Ray 08/20/18 11:47 CONCLUSION: 1. Left perihilar infiltrate consistent with possible pneumonia. Clinical correlation is recommended. 2. Cardiomegaly. Head CT 08/20/18 11:47 CONCLUSION: No acute findings. Report was called by [Ishan Canales at 1202] Neck CTA 08/20/18 11:47 CONCLUSION: Slight atherosclerotic plaquing at the origin of both ICA without any stenosis. Findings were discussed with Dr. Nickerson at the time of this dictation on 2018 at 12:30 7:00 PM. Head MRI 08/20/18 12:28 CONCLUSION: 1. No acute hemorrhage, acute infarct, midline shift or extra-axial fluid collections. 2. Focal encephalomalacia is noted involving the left frontal region. 3. Right periventricular white matter signal abnormality is noted consistent with probable small vessel ischemic disease and/or old lacunar infarct. Assessment and Plan - Plan 58-year-old man with Left MCA lacunar CVA Continue treatment per ischemic stroke protocol status Post TPA Appreciate input from neurology. Continue Keppra 2D echo, Holter monitor, EEG pending Continue with statin Hold aspirin until repeat CT head completed, and if negative start aspirin and Plavix PT/OT/speech therapy consulted Continue permissive hypertension Hypertension Currently oral antihypertensive agents on hold, secondary to above DVT prophylaxis: Bilateral SCDs CMP, lipid profile pending Transfer to [facility]
--- NOTE | 2018-08-21 11:39 | MR ---
EXAM DATE: 08/21/2018 11:31 AM EST AGE/SEX: 58 years / Male INDICATIONS: Stroke. Dysarthria. Post TPA. CLINICAL DATA: This is the patient's initial encounter. Patient reports that signs and symptoms have been present for 2 days and indicates a pain score of 0/10. MEDICAL/SURGICAL HISTORY: Hypertension. Stroke. Carpal tunnel syndrome. Fusion, lumbar. COMPARISON: [facility] [place], MR HEAD W/O CONTRAST, 08/20/2018. [facility] [place], CT HEAD W/O CONTRAST, 08/20/2018. . TECHNIQUE: Multiplanar, multisequence examination of the brain was performed without contrast. FINDINGS: Cerebrum: There are new areas of punctate increased T2 signal identified within the superior left pa rietal lobe associated with restricted diffusion. This is best seen on axial series 8 image 18 and 17 . Wedge-shaped area of increased T2 signal without restricted diffusion identified within the left fr ontal lobe, right periventricular white matter and focal encephalomalacia involving the left basal ga nglia. The ventricles are normal in size without evidence of effacement. No mass effect or midline sh ift. Posterior Fossa: The cerebellum and brainstem are intact. The 4th ventricle is midline. The cerebel lopontine angle is unremarkable. The cerebellar tonsils are normal in position. Diffusion Imaging: New focal areas of reticular diffusion identified within the left parietal lobe. Extracranial: The visualized portions of the orbits and paranasal sinuses are unremarkable. CONCLUSION: 1. New punctate areas of restricted diffusion identified within the left parietal lobe. These are no t associated with hemorrhage. 2. Stable areas of encephalomalacia involving the left frontal lobe, right periventricular white mat ter and left basal ganglia. Electronically signed by: Maria E Martinez MD Board Certified Radiologist 08/21/2018 11:38 AM BRADLEY Thomas
--- NOTE | 2018-08-21 12:53 | CT ---
EXAM DATE: 08/21/2018 12:43 PM EST AGE/SEX: 58 years / Male INDICATIONS: Stroke. CLINICAL DATA: This is the patient's subsequent encounter. Patient reports that signs and symptoms h ave been present for 2 days and indicates a pain score of 0/10. MEDICAL/SURGICAL HISTORY: Stroke. None. RADIATION DOSE: 40.84 CTDI (mGy) COMPARISON: [facility], CT HEAD W/O CONTRAST, 08/20/2018. [facility] [place] [facility] [place] HEAD W CONTRAST W 3D, 08/20/2018. [facility], MR HEAD W/O CONTRAST, 08/21/2018. [facility], MR HEAD W/O CONTRAST, 08/20/2018. . TECHNIQUE: CT of the head without contrast. Using automated exposure control and adjustment of the mA and/or kV according to patient size, radiation dose was kept as low as reasonably achievable to ob tain optimal diagnostic quality images. DICOM format image data is available electronically for revi ew and comparison. FINDINGS: Cerebrum: There is a stable wedge-shaped area of encephalomalacia involving the left frontal lobe an d left basal ganglia. The ventricles are normal in size and symmetric. No evidence of mass effect or midline shift. No evidence of sulcal effacement. Posterior Fossa: The cerebellum and brainstem are intact. The 4th ventricle is midline. The cerebe llopontine angle is unremarkable. Extracranial: The visualized portion of the orbits is intact. Skull: The calvaria is intact. No evidence of skull fracture. CONCLUSION: 1. Stable appearance of an old left frontal temporal infarct. No acute abnormality. 2. Comparison MRI demonstrated areas of new acute restricted diffusion within the left parietal lobe . . Electronically signed by: Maria E Martinez MD Board Certified Radiologist 08/21/2018 12:52 PM BRADLEY Thomas
[2018-08-21] MEDS ORDERED: Aspirin 325 MG Tablet PO SCH ×2 (13:00)
[2018-08-21 14:21] LABS: Baso # (Auto) 0.1 th/mm3 (0.0-0.2); Baso % (Auto) 0.7 % (0.0-2.0); Eos # (Auto) 0.7 th/mm3 (0.0-0.4); Eos % (Auto) 5.4 % (0.0-4.0); Hematocrit 44.3 % (39.0-51.0); Hemoglobin 15.9 gm/dL (13.0-17.0); Lymph # (Auto) 2.5 th/mm3 (1.0-4.8); Lymph % (Auto) 19.7 % (9.0-44.0); Mean Corpuscular HGB Conc 35.8 % (32.0-36.0); Mean Corpuscular Hemoglobin 30.9 pg (27.0-34.0); Mean Corpuscular Volume 86.3 fL (80.0-100.0); Mean Platelet Volume 9.4 fL (7.0-11.0); Mono % (Auto) 8.2 % (0.0-8.0); Neut # (Auto) 8.4 th/mm3 (1.8-7.7); Platelet Count 189 th/mm3 (150-450); Red Blood Count 5.13 mil/mm3 (4.50-5.90); White Blood Count 12.7 th/mm3 (4.0-11.0)
[2018-08-21 14:28] LABS: Activated Partial Thrombo Time 28.6 sec (23.4-31.7); INR 1.1 Ratio; Prothrombin Time 11.4 sec (9.8-11.6)
[2018-08-21 14:44] LABS: Alanine Aminotransferase 38 U/L (12-78); Albumin 3.7 g/dL (3.4-5.0); Anion Gap 6 meq/L (5-15); Aspartate Aminotransferase 22 U/L (15-37); Blood Urea Nitrogen 13 mg/dL (7-18); Chloride 105 meq/L (98-107); Cholesterol 142 mg/dL (120-200); Glomerular Filtration Rate 86 mL/min (>89); Glucose,Random 145 mg/dL (74-106); Magnesium 2.1 mg/dL (1.5-2.5); Potassium 3.9 meq/L (3.5-5.1); Sodium 138 meq/L (136-145); Triglycerides 185 mg/dL (42-150)
[2018-08-21 14:47] LABS: Alkaline Phosphatase 89 U/L (45-117); Chol/HDL Ratio 3.74 Ratio; HDL Cholesterol 37.9 mg/dL (40.0-60.0); LDL Cholesterol,Calculated 67 mg/dL (0-99); Total Protein 7.6 g/dL (6.4-8.2)
--- NOTE | 2018-08-21 15:04 | ECG ---
Date Performed: 08/20/2018 Time Performed: 13:10:06 PTAGE: 58 years EKG: Sinus rhythm LEFT ATRIAL ENLARGEMENT ABNORMAL ECG INTERPRETATION BASED ON A DEFAULT AGE OF 40 YEARS NO PREVIOUS TRACING DOCTOR: Ortiz Jaeger Interpretating Date/Time 08/21/2018 15:02:50
--- NOTE | 2018-08-21 15:40 | P.PNNEU ---
Subjective Subjective Comments: no addison, no cp, no dyspnea Active Medications: Active Medications Acetaminophen (Tylenol) 650 mg PO Q6H PRN PRN Reason: PAIN 1-10 AND/OR FEVER >101F Al Hydroxide/Mg Hydroxide (Milk Of Adan Liso) 30 ml PO Q12H PRN PRN Reason: Mild Constipation Albuterol (Duoneb Neb (Prn)) 1 ampul NEB Q2HR NEB PRN PRN Reason: WHEEZING Aspirin (Aspirin) 325 mg PO DAILY JUVENTINO Bisacodyl (Dulcolax Supp) 10 mg RECTAL DAILY PRN PRN Reason: SEVERE CONSITIPATION Chlorhexidine Gluconate (Chlorhexidine 2% Cloth) 3 pack TOPICAL DAILY@0400 JUVENTINO Stop: 08/26/18 03:59 Chlorhexidine Gluconate (Chlorhexidine 2% Cloth) 3 pack TOPICAL DAILY@0400 PRN PRN Reason: Extra cloth needed Stop: 08/26/18 03:59 Dextrose (D50w Vial) 50 ml IV.PUSH UNSCH PRN PRN Reason: PER HYPOGLYCEMIA PROTOCOL Enalaprilat (Vasotec Inj) 1.25 mg IV.PUSH Q4H PRN PRN Reason: For SBP > 220 or DBP > 120 Glucagon (Glucagon Inj) 1 mg OTHER UNSCH PRN PRN Reason: for Hypoglycemia Protocol Magnesium Sulfate 4 gm/ Sodium (Chloride) 100 mls @ 50 mls/hr IV.SIG UNSCH PRN PRN Reason: For Magnesium 0.9 - 1.1 mg/dL Magnesium Sulfate 2 gm/ Sodium (Chloride) 100 mls @ 50 mls/hr IV.SIG UNSCH PRN PRN Reason: For Magnesium 1.2 - 1.6 mg/dL Potassium Chloride (Kcl 40 Meq Premix Inj) 40 meq in 100 mls @ 50 mls/hr IV.SIG Q2H PRN PRN Reason: For Potassium 2.8 - 3.2 mEq/L Potassium Chloride (Kcl 20 Meq Premix Inj) 20 meq in 100 mls @ 50 mls/hr IV.SIG Q2H PRN PRN Reason: For Potassium 3.3 - 3.5 mEq/L Potassium Chloride (Kcl 40 Meq Premix Inj) 40 meq in 100 mls @ 25 mls/hr IV.SIG UNSCH PRN PRN Reason: For Potassium 3.3 - 3.5 mEq/L Potassium Phosphate 30 mmol/ (Sodium Chloride) 260 mls @ 42 mls/hr IV.SIG UNSCH PRN PRN Reason: SEE LABEL COMMENTS Sodium Phosphate 30 mmol/ (Sodium Chloride) 260 mls @ 42 mls/hr IV.SIG UNSCH PRN PRN Reason: For Phosphorus < 2.5 mg/dL Potassium Chloride (Kcl 20 Meq Premix Inj) 20 meq in 100 mls @ 50 mls/hr IV.SIG Q2H PRN PRN Reason: For Potassium 2.8 - 3.2 mEq/L Insulin Aspart (Novolog Insulin Correctional Sugar Inj) 0 unit SQ ACHS [facility]; Protocol Last Admin: 08/21/18 12:11 Dose: Not Given Labetalol HCl (Trandate Inj) 10 mg IV.PUSH Q2H PRN PRN Reason: For SBP > 220 or DBP > 120 Lactulose (Lactulose Liq) 30 ml PO DAILY PRN PRN Reason: SEVERE CONSITIPATION Levetiracetam (Keppra) 500 mg PO BID [facility] Last Admin: 08/21/18 09:50 Dose: 500 mg Magnesium Oxide (Mag-Ox) 800 mg PO UNSCH PRN PRN Reason: For Magnesium 1.2 - 1.6 mg/dL Nicotine (Habitrol 14 Mg Patch.24 Hr) 1 patch T-DERMAL DAILY [facility] Last Admin: 08/21/18 09:50 Dose: Not Given Ondansetron HCl (Zofran Inj) 4 mg IV.PUSH Q6H PRN PRN Reason: NAUSEA OR VOMITING Patch Removal (Remove Old Patch) 1 each T-DERMAL [facility] Last Admin: 08/20/18 21:45 Dose: 1 each Potassium Chloride (Kcl Liq) 40 meq PO UNSCH PRN PRN Reason: Potassium level 3.3-3.5 mEq/L Potassium Phosphate (K-Phos Original) 2,000 mg PO Q4H PRN PRN Reason: Phosphorus Less Than 2.5 mg/dL Potassium Phosphate (K-Phos Original) 2,000 mg PO UNSCH PRN PRN Reason: SEE LABEL COMMENTS Pravastatin Sodium (Pravachol) 40 mg PO [facility] Last Admin: 08/20/18 21:03 Dose: 40 mg Pregabalin (Lyrica) 50 mg PO TID [facility] Last Admin: 08/21/18 13:07 Dose: 50 mg Sennosides (Senokot) 17.2 mg PO Q12H PRN PRN Reason: Moderate Constipation Sodium Chloride (Ns Flush) 2 ml IV.FLUSH UNSCH PRN PRN Reason: FLUSH AFTER USING IV ACCESS Sodium Chloride (Ns Flush) 2 ml IV.FLUSH BID JUVENTINO Last Admin: 08/21/18 09:50 Dose: 2 ml Allergies/Adverse Reactions: Allergies Allergy/AdvReac Type Severity Reaction Status Date / Time Penicillins Allergy Hives Verified 08/21/18 09:49 Review of Systems All other systems reviewed negative except as stated in HPI Physical Exam Vital signs: Vital Signs 08/20/18 15:45 08/20/18 16:00 08/20/18 16:15 Temperature 98.5 F Pulse Rate 70 70 69 Respiratory Rate 18 23 47 H Blood Pressure 146/86 H Pulse Oximetry 99 98 99 08/20/18 16:30 08/20/18 16:45 08/20/18 17:00 Temperature Pulse Rate 66 65 65 Respiratory Rate 19 19 21 Blood Pressure 134/82 138/77 Pulse Oximetry 97 99 98 08/20/18 17:15 08/20/18 17:30 08/20/18 17:45 Temperature Pulse Rate 69 65 66 Respiratory Rate 20 19 23 Blood Pressure 144/79 H Pulse Oximetry 97 100 99 08/20/18 17:50 08/20/18 18:00 08/20/18 18:15 Temperature Pulse Rate 71 66 72 Respiratory Rate 20 23 Blood Pressure 136/79 Pulse Oximetry 99 95 08/20/18 18:30 08/20/18 19:00 08/20/18 19:15 Temperature 98.1 F Pulse Rate 70 70 65 Respiratory Rate 18 21 19 Blood Pressure 156/82 H 134/69 Pulse Oximetry 99 97 96 08/20/18 19:30 08/20/18 19:45 08/20/18 20:00 Temperature Pulse Rate 69 70 66 Respiratory Rate 35 H 27 H 23 Blood Pressure 138/68 146/76 H Pulse Oximetry 99 99 99 08/20/18 20:15 08/20/18 20:30 08/20/18 20:45 Temperature Pulse Rate 70 65 66 Respiratory Rate 34 H 22 20 Blood Pressure 143/64 H Pulse Oximetry 99 99 98 08/20/18 21:00 08/20/18 21:15 08/20/18 21:30 Temperature Pulse Rate 63 64 64 Respiratory Rate 24 17 33 H Blood Pressure 166/96 H 146/85 H Pulse Oximetry 98 99 99 08/20/18 21:45 08/20/18 22:00 08/20/18 22:15 Temperature Pulse Rate 62 65 63 Respiratory Rate 17 19 21 Blood Pressure 153/83 H Pulse Oximetry 98 99 98 08/20/18 22:30 08/20/18 22:45 08/20/18 23:00 Temperature Pulse Rate 61 65 66 Respiratory Rate 20 24 22 Blood Pressure 140/95 H 132/73 Pulse Oximetry 96 98 99 08/20/18 23:15 08/20/18 23:30 08/20/18 23:45 Temperature Pulse Rate 62 63 61 Respiratory Rate 17 23 18 Blood Pressure 147/93 H Pulse Oximetry 97 97 98 08/21/18 00:00 08/21/18 00:15 08/21/18 00:30 Temperature 98.6 F Pulse Rate 62 57 L 59 L Respiratory Rate 15 16 17 Blood Pressure 147/79 H 143/85 H Pulse Oximetry 99 98 98 08/21/18 00:45 08/21/18 01:00 08/21/18 01:15 Temperature Pulse Rate 60 65 61 Respiratory Rate 17 28 H 17 Blood Pressure 144/84 H Pulse Oximetry 97 98 97 08/21/18 01:30 08/21/18 01:45 08/21/18 02:00 Temperature Pulse Rate 59 L 61 69 Respiratory Rate 22 20 18 Blood Pressure 121/69 142/73 H Pulse Oximetry 97 97 97 08/21/18 02:15 08/21/18 02:30 08/21/18 02:45 Temperature Pulse Rate 70 64 64 Respiratory Rate 20 19 23 Blood Pressure 138/71 Pulse Oximetry 98 97 97 08/21/18 03:00 08/21/18 03:15 08/21/18 03:30 Temperature Pulse Rate 63 64 63 Respiratory Rate 22 24 25 H Blood Pressure 149/79 H 136/76 Pulse Oximetry 98 99 99 08/21/18 03:45 08/21/18 04:00 08/21/18 04:15 Temperature Pulse Rate 65 68 60 Respiratory Rate 32 H 14 15 Blood Pressure 149/91 H Pulse Oximetry 99 95 96 08/21/18 04:30 08/21/18 04:45 08/21/18 05:00 Temperature Pulse Rate 60 63 65 Respiratory Rate 18 8 L 18 Blood Pressure 140/75 122/76 Pulse Oximetry 96 98 95 08/21/18 05:15 08/21/18 05:30 08/21/18 05:45 Temperature Pulse Rate 63 66 66 Respiratory Rate 20 21 28 H Blood Pressure 150/92 H Pulse Oximetry 97 97 97 08/21/18 06:00 08/21/18 06:15 08/21/18 06:30 Temperature Pulse Rate 62 64 61 Respiratory Rate 20 20 15 Blood Pressure 152/86 H 119/60 Pulse Oximetry 96 98 96 08/21/18 06:45 08/21/18 07:00 08/21/18 07:15 Temperature Pulse Rate 68 67 63 Respiratory Rate 31 H 18 18 Blood Pressure 132/81 Pulse Oximetry 99 97 96 08/21/18 07:29 08/21/18 07:30 08/21/18 07:32 Temperature Pulse Rate 72 Respiratory Rate 45 H Blood Pressure 153/85 H Pulse Oximetry 98 97 96 08/21/18 07:45 08/21/18 08:00 08/21/18 08:15 Temperature Pulse Rate 64 66 69 Respiratory Rate 18 24 20 Blood Pressure 133/70 Pulse Oximetry 98 96 95 08/21/18 08:30 08/21/18 08:45 08/21/18 09:00 Temperature Pulse Rate 74 72 69 Respiratory Rate 18 21 20 Blood Pressure 144/83 H Pulse Oximetry 95 96 97 08/21/18 09:20 08/21/18 09:30 08/21/18 09:45 Temperature Pulse Rate 72 74 Respiratory Rate 33 H Blood Pressure 143/84 H 138/79 Pulse Oximetry 96 95 93 L 08/21/18 10:00 08/21/18 10:15 08/21/18 10:30 Temperature Pulse Rate 76 75 75 Respiratory Rate 20 18 18 Blood Pressure 132/98 H 139/87 Pulse Oximetry 95 97 08/21/18 10:45 08/21/18 11:00 08/21/18 12:00 Temperature 98.5 F Pulse Rate 78 74 71 Respiratory Rate 16 23 16 Blood Pressure 138/84 151/86 H Pulse Oximetry 98 Intake & Output 08/20/18 08/21/18 08/21/18 18:59 06:59 18:59 Intake Total 561 / 561 660 / 660 400 / 400 Output Total 750 / 750 1375 / 1375 Balance -189 / -189 -715 / -715 400 / 400 Weight 106.5 kg 107.1 kg Intake: IV Activase Drip 81 MG In Bag/ Syringe 1 EACH @ 81 mls/hr IV. SIG ONCE ONE Rx#:[id number] Oral 480 / 480 660 / 660 400 / 400 Output: Urine 750 / 750 1375 / 1375 Other: # Voids 4 6 3 Date of Last Bowel Movement 08/21/18 # Bowel Movements 1 Narrative: GENERAL: in NAD, SKIN: Warm and dry. HEAD: Atraumatic. Normocephalic. EYES: Pupils equal and round. No scleral icterus. ENT: No nasal bleeding or discharge. Mucous membranes pink and moist. NECK: Trachea midline. No JVD. CARDIOVASCULAR: Regular rate and rhythm. RESPIRATORY: No accessory muscle use. GASTROINTESTINAL: Abdomen soft, non-tender, nondistended. MUSCULOSKELETAL: Extremities without clubbing, cyanosis, or edema. No obvious deformities. NEUROLOGICAL: Awake and alert. Sitting up in bed mildly dysarthric speech, minimal expressive aphasia able to repeat name, follows motor request, pleasant , slightly reduced right nasolabial fold smile, no pronator drift me neglect OU 3-2mm, eomi, VFF, Motor grossly within normal limits. Five out of 5 muscle strength in the arms and legs. Tone normal in all 4 limbs, Sensory normal in all 4 extremities to pin, msr 1-2+ sym, no clonus, planterflexor, PSYCHIATRIC: Appropriate mood and affect; insight and judgment normal. - Constitutional no acute distress - Routine HEENT Exam Head: Present: normocephalic Eye: Present: EOMI Objective Laboratory Results - last 24 hr 08/20/18 08/20/18 08/20/18 15:30 17:27 21:12 WBC RBC Hgb Hct MCV MCH MCHC RDW Plt Count MPV Neut % (Auto) Lymph % (Auto) Mcleod % (Auto) Eos % (Auto) Baso % (Auto) Neut # (Auto) Lymph # (Auto) Mcleod # (Auto) Eos # (Auto) Baso # (Auto) WBC Differential Differential Comment PT INR APTT Sodium Potassium Chloride Carbon Dioxide Anion Gap BUN Creatinine Estimated GFR POC Glucose 119 H 95 Random Glucose Calcium Magnesium Total Bilirubin AST ALT Alkaline Phosphatase Total Protein Albumin Triglycerides Cholesterol LDL Cholesterol, Calc HDL Cholesterol Cholesterol/HDL Ratio Nasal Screen MRSA (PCR) Not detected 08/21/18 08/21/18 08/21/18 11:57 13:56 13:56 WBC 12.7 H RBC 5.13 Hgb 15.9 Hct 44.3 MCV 86.3 MCH 30.9 MCHC 35.8 RDW 14.0 Plt Count 189 MPV 9.4 Neut % (Auto) 66.0 Lymph % (Auto) 19.7 Mcleod % (Auto) 8.2 H Eos % (Auto) 5.4 H Baso % (Auto) 0.7 Neut # (Auto) 8.4 H Lymph # (Auto) 2.5 Mcleod # (Auto) 1.0 H Eos # (Auto) 0.7 H Baso # (Auto) 0.1 WBC Differential . Differential Comment Auto diff final PT 11.4 INR 1.1 APTT 28.6 Sodium Potassium Chloride Carbon Dioxide Anion Gap BUN Creatinine Estimated GFR POC Glucose 110 Random Glucose Calcium Magnesium Total Bilirubin AST ALT Alkaline Phosphatase Total Protein Albumin Triglycerides Cholesterol LDL Cholesterol, Calc HDL Cholesterol Cholesterol/HDL Ratio Nasal Screen MRSA (PCR) 08/21/18 13:56 WBC RBC Hgb Hct MCV MCH MCHC RDW Plt Count MPV Neut % (Auto) Lymph % (Auto) Mcleod % (Auto) Eos % (Auto) Baso % (Auto) Neut # (Auto) Lymph # (Auto) Mcleod # (Auto) Eos # (Auto) Baso # (Auto) WBC Differential Differential Comment PT INR APTT Sodium 138 Potassium 3.9 Chloride 105 Carbon Dioxide 27.0 Anion Gap 6 BUN 13 Creatinine 0.91 Estimated GFR 86 L POC Glucose Random Glucose 145 H Calcium 9.0 Magnesium 2.1 Total Bilirubin 0.9 AST 22 ALT 38 Alkaline Phosphatase 89 Total Protein 7.6 Albumin 3.7 Triglycerides 185 H Cholesterol 142 LDL Cholesterol, Calc 67 HDL Cholesterol 37.9 L Cholesterol/HDL Ratio 3.74 Nasal Screen MRSA (PCR) Review/Management - Diagnosis (1) Acute ischemic left MCA stroke Code(s): I63.512 - Cerebral infarction due to unspecified occlusion or stenosis of left middle cerebral artery Status: Acute Current Visit: Yes (2) Chronic arterial ischemic stroke Code(s): I69.30 - Unspecified sequelae of cerebral infarction Status: Acute Current Visit: Yes (3) Hypertension Code(s): I10 - Essential (primary) hypertension Status: Acute Current Visit : Yes - Review/Management Plan: Left MCA lacunar stroke versus resolving TIA Status post IV TPA Speech improved after IV TPA. NIH stroke scale score 1 MRI brain scan reviewed which was done shortly after he got IV TPA did not show any acute stroke however does have evidence of a old left frontal infarct and old right hemispheric stroke. This would bring up the question of embolic phenomenon He also may have had left hemispheric seizure affecting his speech and arm we will check an EEG and that standpoint repeat mri brain 08/21/2017 does show tiny left temporal region infarcts Repeat CT brain 24-hour post TPA negative for hemorrhage Recommendation We will start aspirin Plavix. Can stop aspirin in 3 months DC planning in a.m. Follow-up 2D echo report further evaluation follow-up in [place] per patient request We discussed hypercoagulable panel hematological evaluation cardiological evaluation for ABELARDO although he may need to be here for a few more days for that. He states he will get this testing performed outpatient in [place] is a flight back on Thursday. I also suggest for the patient to get an outpatient polysomnogram to exclude sleep apnea with his history of stroke, large neck circumference and hypertension Follow exam
--- NOTE | 2018-08-21 21:32 | MG ---
cc: Mahesh Ramsey MD DATE OF STUDY: 08/21/2018 ELECTROENCEPHALOGRAM RECORD NUMBER: [id number] DESCRIPTION: An 8-9 Hz posterior alpha rhythm, 20-50 microvolts, low-amplitude beta in the frontal channels, good anterior to posterior gradient. Attenuation slowing with transition into drowsy state, followed by stage I and stage II sleep with the appearance of spindles and K complexes. Frequent arousals during sleep with good background reactivity. Single-lead EKG showing sinus rhythm. INTERPRETATION: Normal awake sleep electroencephalogram. Clinical correlation. MD BRISA White/ahsan , 08:51 PM , 08:56 PM
[2018-08-22] MEDS: Pregabalin 25 MG Capsule PO SCH (08:00)
--- NOTE | 2018-08-22 08:38 | ECHRPT ---
Indication: CVA/TIA CONCLUSIONS Normal left ventricular size. Mild concentric left ventricular hypertrophy. The left ventricular systolic function is low normal with an estimated ejection fraction in the rang e of 50- 55%. Mild mitral valve stenosis. Mitral valve mean gradient is 11 mmHg. The estimated pulmonary arterial pressure is 17 mmHg. BP: / HR: Rhythm: Sinus MEASUREMENTS (Male / Female) Normal Values Technical Quality:Fair 2D ECHO LV Diastolic Diameter PLAX 3.8 cm 4.2 - 5.9 / 3.9 - 5.3 cm LV Systolic Diameter PLAX 2.9 cm IVS Diastolic Thickness 1.6 cm 0.6 - 1.0 / 0.6 - 0.9 cm LVPW Diastolic Thickness 1.3 cm 0.6 - 1.0 / 0.6 - 0.9 cm LV Relative Wall Thickness 0.8 RV Internal Dim ED PLAX 3.1 cm LVOT Diameter 2.3 cm Aortic Root Diameter 3.3 cm LA Systolic Diameter LX 4.5 cm 3.0 - 4.0 / 2.7 - 3.8 cm DOPPLER AV Peak Velocity 148.0 cm/s AV Peak Gradient 8.8 mmHg LVOT Peak Velocity 124.0 cm/s LVOT Peak Gradient 6.2 mmHg AV Area Cont Eq pk 3.5 cm MV Peak Velocity 228.7 cm/s MV Peak Gradient 20.9 mmHg MV Mean Velocity 157.3 cm/s MV Mean Gradient 11.0 mmHg Mitral E Point Velocity 153.0 cm/s Mitral A Point Velocity 208.0 cm/s Mitral E to A Ratio 0.7 LV E' Lateral Velocity 5.5 cm/s Mitral E to LV E' Lateral Ratio 28.0 LV E' Septal Velocity 6.4 cm/s Mitral E to LV E' Septal Ratio 23.8 TR Peak Velocity 136.0 cm/s TR Peak Gradient 7.4 mmHg Right Atrial Pressure 10.0 mmHg Pulmonary Artery Systolic Pressu 17.4 mmHg Right Ventricular Systolic Press 17.4 mmHg PV Peak Velocity 137.0 cm/s PV Peak Gradient 7.5 mmHg FINDINGS LEFT VENTRICLE Normal left ventricular size. Mild concentric left ventricular hypertrophy. The left ventricular systolic function is low normal with an estimated ejection fraction in the rang e of 50- 55%. RIGHT VENTRICLE Normal right ventricular size and systolic function. LEFT ATRIUM The left atrial size is normal. RIGHT ATRIUM The right atrial size is normal. ATRIAL SEPTUM Normal atrial septal thickness without atrial level shunting by limited color doppler interrogation. AORTA The aortic root and proximal ascending aorta are normal in size on limited imaging. MITRAL VALVE Mild mitral valve stenosis. Mitral valve mean gradient is 11 mmHg. AORTIC VALVE Trileaflet aortic valve. No aortic valve stenosis or regurgitation. TRICUSPID VALVE The estimated pulmonary arterial pressure is 17 mmHg. PULMONARY VALVE No pulmonary valve regurgitation or stenosis. VESSELS The inferior vena cava is normal in size. PERICARDIUM No pericardial effusion. Cindy Broderick MD (Electronically Signed) Final Date:22 August 2018 08:37
--- NOTE | 2018-08-22 10:39 | P.PNNEU ---
Subjective Subjective Comments: Patient states his speech has returned. Slept well overnight. No chest pain dyspnea or focal weakness feels well ready to go home Active Medications: Active Medications Acetaminophen (Tylenol) 650 mg PO Q6H PRN PRN Reason: PAIN 1-10 AND/OR FEVER >101F Al Hydroxide/Mg Hydroxide (Milk Of Magnesia Liq) 30 ml PO Q12H PRN PRN Reason: Mild Constipation Albuterol (Duoneb Neb (Prn)) 1 ampul NEB Q2HR NEB PRN PRN Reason: WHEEZING Aspirin (Aspirin) 325 mg PO DAILY [facility] Bisacodyl (Dulcolax Supp) 10 mg RECTAL DAILY PRN PRN Reason: SEVERE CONSITIPATION Chlorhexidine Gluconate (Chlorhexidine 2% Cloth) 3 pack TOPICAL DAILY@0400 [facility] Stop: 08/26/18 03:59 Last Admin: 08/22/18 06:28 Dose: Not Given Chlorhexidine Gluconate (Chlorhexidine 2% Cloth) 3 pack TOPICAL DAILY@0400 PRN PRN Reason: Extra cloth needed Stop: 08/26/18 03:59 Clopidogrel Bisulfate (Plavix) 75 mg PO DAILY [facility] Last Admin: 08/22/18 08:00 Dose: 75 mg Dextrose (D50w Vial) 50 ml IV.PUSH UNSCH PRN PRN Reason: PER HYPOGLYCEMIA PROTOCOL Enalaprilat (Vasotec Inj) 1.25 mg IV.PUSH Q4H PRN PRN Reason: For SBP > 220 or DBP > 120 Glucagon (Glucagon Inj) 1 mg OTHER UNSCH PRN PRN Reason: for Hypoglycemia Protocol Insulin Aspart (Novolog Insulin Correctional Sugar Inj) 0 unit SQ [facility]; Protocol Last Admin: 08/21/18 21:35 Dose: Not Given Labetalol HCl (Trandate Inj) 10 mg IV.PUSH Q2H PRN PRN Reason: For SBP > 220 or DBP > 120 Lactulose (Lactulose Liq) 30 ml PO DAILY PRN PRN Reason: SEVERE CONSITIPATION Nicotine (Habitrol 14 Mg Patch.24 Hr) 1 patch T-DERMAL DAILY [facility] Last Admin: 08/22/18 08:02 Dose: Not Given Ondansetron HCl (Zofran Inj) 4 mg IV.PUSH Q6H PRN PRN Reason: NAUSEA OR VOMITING Patch Removal (Remove Old Patch) 1 each T-DERMAL HS [facility] Last Admin: 08/21/18 21:31 Dose: 1 each Pravastatin Sodium (Pravachol) 40 mg PO HS [facility] Last Admin: 08/21/18 21:29 Dose: 40 mg Pregabalin (Lyrica) 50 mg PO TID [facility] Last Admin: 08/22/18 08:00 Dose: 50 mg Sennosides (Senokot) 17.2 mg PO Q12H PRN PRN Reason: Moderate Constipation Sodium Chloride (Ns Flush) 2 ml IV.FLUSH UNSCH PRN PRN Reason: FLUSH AFTER USING IV ACCESS Sodium Chloride (Ns Flush) 2 ml IV.FLUSH BID [facility] Last Admin: 08/21/18 21:29 Dose: 2 ml Allergies/Adverse Reactions: Allergies Allergy/AdvReac Type Severity Reaction Status Date / Time Penicillins Allergy Hives Verified 08/21/18 09:49 Review of Systems All other systems reviewed negative except as stated in HPI Physical Exam Vital signs: Vital Signs 08/21/18 10:45 08/21/18 11:00 08/21/18 12:00 Temperature 98.5 F Pulse Rate 78 74 71 Respiratory Rate 16 23 16 Blood Pressure 138/84 151/86 H Pulse Oximetry 98 08/21/18 15:52 08/21/18 21:03 08/22/18 01:10 Temperature 98.1 F 97.8 F Pulse Rate 76 72 Respiratory Rate 18 18 Blood Pressure 158/88 H 169/89 H Pulse Oximetry 98 97 97 08/22/18 01:50 08/22/18 05:05 08/22/18 08:00 Temperature 97.2 F L 97.5 F L 98.4 F Pulse Rate 72 70 82 Respiratory Rate 20 20 18 Blood Pressure 133/77 151/96 H 149/90 H Pulse Oximetry 96 98 97 08/22/18 08:28 Temperature Pulse Rate Respiratory Rate Blood Pressure Pulse Oximetry 98 Intake & Output 08/21/18 08/22/18 08/22/18 18:59 06:59 18:59 Intake Total 1400 / 1400 Balance 1400 / 1400 Intake: Oral 1400 / 1400 Other: # Voids 3 2 Date of Last Bowel Movement 08/21/18 08/21/18 # Bowel Movements 1 Narrative: GENERAL: in NAD, SKIN: Warm and dry. HEAD: Atraumatic. Normocephalic. EYES: Pupils equal and round. No scleral icterus. ENT: No nasal bleeding or discharge. Mucous membranes pink and moist. NECK: Trachea midline. No JVD. CARDIOVASCULAR: Regular rate and rhythm. RESPIRATORY: No accessory muscle use. GASTROINTESTINAL: Abdomen soft, non-tender, nondistended. MUSCULOSKELETAL: Extremities without clubbing, cyanosis, or edema. No obvious deformities. NEUROLOGICAL: Awake and alert. Speech significantly improved much more fluent follows motor request, pleasant, slightly reduced right nasolabial fold smile, no pronator drift me neglect OU 3-2mm, eomi, VFF, Motor grossly within normal limits. Five out of 5 muscle strength in the arms and legs. Tone normal in all 4 limbs, Sensory normal in all 4 extremities to pin, msr 1-2+ sym, no clonus, planterflexor, PSYCHIATRIC: Appropriate mood and affect; insight and judgment normal. - Constitutional no acute distress - Routine HEENT Exam Head: Present: normocephalic Eye: Present: EOMI Objective Laboratory Results - last 24 hr 08/21/18 08/21/18 08/21/18 11:57 13:56 13:56 WBC 12.7 H RBC 5.13 Hgb 15.9 Hct 44.3 MCV 86.3 MCH 30.9 MCHC 35.8 RDW 14.0 Plt Count 189 MPV 9.4 Neut % (Auto) 66.0 Lymph % (Auto) 19.7 Esmeralda % (Auto) 8.2 H Eos % (Auto) 5.4 H Baso % (Auto) 0.7 Neut # (Auto) 8.4 H Lymph # (Auto) 2.5 Esmeralda # (Auto) 1.0 H Eos # (Auto) 0.7 H Baso # (Auto) 0.1 WBC Differential . Differential Comment Auto diff final PT 11.4 INR 1.1 APTT 28.6 Sodium Potassium Chloride Carbon Dioxide Anion Gap BUN Creatinine Estimated GFR POC Glucose 110 Random Glucose Calcium Magnesium Total Bilirubin AST ALT Alkaline Phosphatase Total Protein Albumin Triglycerides Cholesterol LDL Cholesterol, Calc HDL Cholesterol Cholesterol/HDL Ratio 08/21/18 08/21/18 13:56 17:17 WBC RBC Hgb Hct MCV MCH MCHC RDW Plt Count MPV Neut % (Auto) Lymph % (Auto) Esmeralda % (Auto) Eos % (Auto) Baso % (Auto) Neut # (Auto) Lymph # (Auto) Esmeralda # (Auto) Eos # (Auto) Baso # (Auto) WBC Differential Differential Comment PT INR APTT Sodium 138 Potassium 3.9 Chloride 105 Carbon Dioxide 27.0 Anion Gap 6 BUN 13 Creatinine 0.91 Estimated GFR 86 L POC Glucose 80 Random Glucose 145 H Calcium 9.0 Magnesium 2.1 Total Bilirubin 0.9 AST 22 ALT 38 Alkaline Phosphatase 89 Total Protein 7.6 Albumin 3.7 Triglycerides 185 H Cholesterol 142 LDL Cholesterol, Calc 67 HDL Cholesterol 37.9 L Cholesterol/HDL Ratio 3.74 Review/Management - Diagnosis (1) Acute ischemic left MCA stroke Code(s): I63.512 - Cerebral infarction due to unspecified occlusion or stenosis of left middle cerebral artery Status: Acute Current Visit: Yes (2) Chronic arterial ischemic stroke Code(s): I69.30 - Unspecified sequelae of cerebral infarction Status: Acute Current Visit: Yes (3) Hypertension Code(s): I10 - Essential (primary) hypertension Status: Acute Current Visit : Yes - Review/Management Plan: Left MCA lacunar stroke versus resolving TIA Status post IV TPA Speech improved after IV TPA. NIH stroke scale score 1 MRI brain scan reviewed which was done shortly after he got IV TPA did not show any acute stroke however does have evidence of a old left frontal infarct and old right hemispheric stroke. This would bring up the question of embolic phenomenon He also may have had left hemispheric seizure affecting his speech and arm we will check an EEG and that standpoint repeat mri brain 08/21/2017 does show tiny left temporal region infarcts Repeat CT brain 24-hour post TPA negative for hemorrhage 2D echo EF 50-55% mild mitral valve stenosis Recommendation Neuro exam improved aspirin Plavix. Can stop aspirin in 3 months DC planning today Follow-up 2D echo report Discussed below the patient again this morning further evaluation follow-up in [place] per patient request We discussed hypercoagulable panel hematological evaluation cardiological evaluation for ABELARDO although he may need to be here for a few more days for that. He states he will get this testing performed outpatient in [place] is a flight back on Thursday. I also suggest for the patient to get an outpatient polysomnogram to exclude sleep apnea with his history of stroke, large neck circumference and hypertension Behavioral modification and risk factor reduction. Weight loss, blood pressure control, blood sugar control, lipid control. Exercise
--- NOTE | 2018-08-22 10:42 | P.DS ---
Date of admission: 08/20/18 12:39 Primary care physician: UNKNOWN Attending physician on discharge: Grant Green Anticipated date of discharge: 08/22/18 Brief History from admission: 58yM presenting to the emergency department as a stroke alert. The patient says that at 11 AM today he was talking to his friend when he began to have difficulty speaking and right arm weakness. He says, "I knew what I wanted to say in my head but I just couldn't get the words out", and says that he was able to understand what other people were saying to him, and was able to write what he meant on a piece of paper. He was initially seen in an urgent care center and subsequently sent to the ED. He says these symptoms lasted 15-20 minutes, resolved, but then again recurred in the ED. He has no symptoms at present. Denies visual disturbance, facial numbness/ facial droop, extremity weakness, or LUE/ bilateral lower extremity numbness. 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 No known history of A fib, current every day smoker. Family history significant for father with CAD/ CO. Patient update on day of discharge: Follow up for left MCA CVA. The patient is seen sitting upright in bed. He states his dysarthria has resolved overnight and he is now able to participate in conversation. Denies any unilateral numbness/weakness. Denies any other new medical complaints. He wants to go home. Plans to return to [place] tomorrow. Thoroughly discussed recommendations to f/up with PCP, neurology, and cardiology in [place], patient verbalized understanding. DS: Diagnosis - Discharge Diagnosis (1) Acute ischemic left MCA stroke Status: Acute DS: Medications - Discharge Medications Prescriptions: clopidogrel [Plavix] 75 mg PO DAILY #30 tab pravastatin 40 mg PO HS #30 tab DS: Summary Hospital Course: Left MCA lacunar CVA: the patient presented with a 1hour history of dysarthria and brief episode of right arm numbness. Initial stat head CT did not show any acute hemorrhage. Patient received IV TPA 08/20. Speech improved after TPA. Brain MRI done 08/20 shortly after TPA, showed No acute hemorrhage, acute infarct , midline shift or extra-axial fluid collections; Focal encephalomalacia is noted involving the left frontal region; Right periventricular white matter signal abnormality is noted consistent with probable small vessel ischemic disease and/or old lacunar infarct. Neck CTA 08/20 showed Slight atherosclerotic plaquing at the origin of both ICA without any stenosis. Repeat Brain MRI 08/21 showed New punctate areas of restricted diffusion identified within the left parietal lobe; not associated with hemorrhage. Also concern for possible seizure focus, however EEG 08/21 unremarkable. Echo 08/21 unremarkable with EF 50- 55%. Neurology started the patient on Plavix in addition to his aspirin 325mg daily, with recommendations to discontinued aspirin in 3 months. Statin was continued. PT/OT/ST consulted, no therapy needed at discharge. ABELARDO also recommended by neurology however patient declined as he plans to return to [place] for any further work up. Cleared for discharge by neurology. Patient strongly encouraged to follow up with PCP, cardiology, hematology, and neurology in [place]. At time of discharge, patient speech significantly improved without any signs of dysarthria/slurring. Stable for discharge. - Time Spent with Patient Total time spent providing and/or coordinating discharge services: Greater than 30 minutes - Quality: VTE Deep Vein Thrombosis/Pulmonary Embolism Present on Admission: No Exam Vital signs: Vital Signs 08/21/18 10:45 08/21/18 11:00 08/21/18 12:00 Temperature 98.5 F Pulse Rate 78 74 71 Respiratory Rate 16 23 16 Blood Pressure 138/84 151/86 H Pulse Oximetry 98 08/21/18 15:52 08/21/18 21:03 08/22/18 01:10 Temperature 98.1 F 97.8 F Pulse Rate 76 72 Respiratory Rate 18 18 Blood Pressure 158/88 H 169/89 H Pulse Oximetry 98 97 97 08/22/18 01:50 08/22/18 05:05 08/22/18 08:00 Temperature 97.2 F L 97.5 F L 98.4 F Pulse Rate 72 70 82 Respiratory Rate 20 20 18 Blood Pressure 133/77 151/96 H 149/90 H Pulse Oximetry 96 98 97 08/22/18 08:28 Temperature Pulse Rate Respiratory Rate Blood Pressure Pulse Oximetry 98 Intake & Output 08/21/18 08/22/18 08/22/18 18:59 06:59 18:59 Intake Total 1400 / 1400 Balance 1400 / 1400 Intake: Oral 1400 / 1400 Other: # Voids 3 2 Date of Last Bowel Movement 08/21/18 08/21/18 # Bowel Movements 1 Narrative: GENERAL: Well-nourished, well-developed pleasant middle-age male patient in [facility]. SKIN: Warm and dry. No rash. HEENT: Normocephalic. Atraumatic. Pupils equal and round. Mucous membranes pink and moist. CARDIOVASCULAR: Regular rate and rhythm. No murmur appreciated. RESPIRATORY: No accessory muscle use. Clear to auscultation. Breath sounds equal bilaterally. GASTROINTESTINAL: Abdomen soft, non-tender, nondistended. Normoactive bowel sounds x4. MUSCULOSKELETAL: No obvious deformities. Extremities without clubbing, cyanosis , or edema. NEUROLOGICAL: Awake and alert. No obvious cranial nerve deficits. 5/5 strength of bilateral upper and lower extremities. Bilateral facial, upper, lower extremity sensation equal and intact. Slight flattening of left nasolabial fold. No lid lag. No tongue deviation. Good buccal mucosa strength. No pronator drift bilaterally. Normal speech. PSYCHIATRIC: Appropriate mood and affect; insight and judgment normal. Results Procedures completed during hospitalization: None. Labs on day of discharge: Labs from last 24 hours 08/21/18 08/21/18 08/21/18 17:17 13:56 13:56 WBC RBC Hgb Hct MCV MCH MCHC RDW Plt Count MPV Neut % (Auto) Lymph % (Auto) [place] % (Auto) Eos % (Auto) Baso % (Auto) Neut # (Auto) Lymph # (Auto) [place] # (Auto) Eos # (Auto) Baso # (Auto) WBC Differential Differential Comment PT INR APTT Sodium 138 Potassium 3.9 Chloride 105 Carbon Dioxide 27.0 Anion Gap 6 BUN 13 Creatinine 0.91 Estimated GFR 86 L POC Glucose 80 Random Glucose 145 H Hemoglobin A1c Pending Calcium 9.0 Magnesium 2.1 Total Bilirubin 0.9 AST 22 ALT 38 Alkaline Phosphatase 89 Total Protein 7.6 Albumin 3.7 Triglycerides 185 H Cholesterol 142 LDL Cholesterol, Calc 67 HDL Cholesterol 37.9 L Cholesterol/HDL Ratio 3.74 08/21/18 08/21/18 08/21/18 13:56 13:56 11:57 WBC 12.7 H RBC 5.13 Hgb 15.9 Hct 44.3 MCV 86.3 MCH 30.9 MCHC 35.8 RDW 14.0 Plt Count 189 MPV 9.4 Neut % (Auto) 66.0 Lymph % (Auto) 19.7 [place]verse % (Auto) 8.2 H Eos % (Auto) 5.4 H Baso % (Auto) 0.7 Neut # (Auto) 8.4 H Lymph # (Auto) 2.5 [place]verse # (Auto) 1.0 H Eos # (Auto) 0.7 H Baso # (Auto) 0.1 WBC Differential . Differential Comment Auto diff final PT 11.4 INR 1.1 APTT 28.6 Sodium Potassium Chloride Carbon Dioxide Anion Gap BUN Creatinine Estimated GFR POC Glucose 110 Random Glucose Hemoglobin A1c Calcium Magnesium Total Bilirubin AST ALT Alkaline Phosphatase Total Protein Albumin Triglycerides Cholesterol LDL Cholesterol, Calc HDL Cholesterol Cholesterol/HDL Ratio - Impressions ITS Impressions Chest X-Ray 08/20/18 11:47 CONCLUSION: 1. Left perihilar infiltrate consistent with possible pneumonia. Clinical correlation is recommended. 2. Cardiomegaly. Neck CTA 08/20/18 11:47 CONCLUSION: Slight atherosclerotic plaquing at the origin of both ICA without any stenosis. Findings were discussed with Dr. Nickerson at the time of this dictation on 2018 at 12:30 7:00 PM. Head MRI 08/21/18 00:00 CONCLUSION: 1. New punctate areas of restricted diffusion identified within the left parietal lobe. These are not associated with hemorrhage. 2. Stable areas of encephalomalacia involving the left frontal lobe, right periventricular white matter and left basal ganglia. Head CT 08/21/18 12:00 CONCLUSION: 1. Stable appearance of an old left frontal temporal infarct. No acute abnormality. 2. Comparison MRI demonstrated areas of new acute restricted diffusion within the left parietal lobe. . Discharge Plan - Discharge Disposition Patient Disposition: Discharge Home - Discharge Condition Condition: Stable - Discharge Order Discharge Orders: Discharge Order (Routine); Ordered 08/22/18 Ordered By: Lacey Lockhart - Discharge Details Anticipated Discharge Date: 08/22/18 Discharge Comment: Ok to discharge after echo resulted if unremarkable. - Physicians Team Primary Care Provider: UNKNOWN, Attending Provider: Grant Green Other Providers: Mahesh Ramsey MD ; Selena Scott MD
[2018-08-22 13:11] LABS: Hemoglobin A1c 5.9 % (4.3-6.0)
== END 2018-08-22 13:22 | disposition home or self-care (01) | DRG 63 ==
LOC: NEPE 11:44 → NEDA 12:39 → N03 14:28 → N05 08-21 14:27
PROVIDERS: ADMIT Family Medicine; ATTEND Family Medicine
CPT/HCPCS: 70450; 70496; 70498; 70551; 71010; 71045; 80048; 80053; 80061; 80307; 81001; 82550; 82552; 82948; 82962; 83036; 83735; 84484; 85025; 85384; 85610; 85730; 86850; 86900; 86901; 87641; 90765; 90775; 92507; 92610; 93005; 93306; 94150; 95819; 96365; 96375; 97163; 97166; 99285; G0195; J2060; J2997; Q9967